=== PATIENT | female | born 1980 | race Caucasian/White ===

== ENCOUNTER 2024-08-21 12:11 | Emergency (ER) | payer SELFPAY ==
--- OUTSIDE RECORDS SUMMARY | 2024-08-21 12:14 | XMS REPORT | Continuity of Care Document ---
Author Name Unknown Address [address] [place] [address] [facility] thconnect Address [address] [place] [address] Care Team Providers Care Fitness Consultant Name Role Phone None, None Primary Care Physician Unavailab Yen Mireles MD Attending Clinician Stacy Haney LCSW Attending Clinician Unavail able SHANA TINAJERO Attending Clinician ARLINE Shah Attending Clinician Unavailab zander NORWOOD Attending Clinician Unavailrob Holliday_mahamed Attending Clinician Unavailrob Bolden Attending Clinician Unavailable DESTIN MARTÍNEZ Attending Clinician Unavail able NO PHYSICIAN, . Attending Clinician Unavailable ERASTO DIAZ Attending Clinician Unavaila KASHIF Bill Attending Clinician Unavaila LAURA Ramirez Attending Clinician UnavailFAITH Aiken Attending Clinician Unavailable MANASA ALVARES Admitting Clinician Un available METCALF_PRISCILLA Admitting Clinician Unavailrob e Obisesan_adekunbi Admitting Clinician Unavailrob e Ki_Suma Admitting Clinician Unavailable DESTIN MARTÍNEZ Admitting Clinician Unavail able ERASTO DIAZ Admitting Clinician Unavaila LAURA Ramirez Admitting Clinician UnavailFAITH Aiken Admitting Clinician Unavailable Payers Payer Name Policy Type Policy Number Effective Date Expirati on Date Source [facility] PLAN STAR [id number] 2016 00:00:00 Problems Condition Name Condition Details Condition Category Status Onset Date Resolution Date Last Treatment Date Treating Clinician Comments Source Myopia Myopia Problem Active 09-19 00:00: 00 [place] [facility] Ophthalmic examinatio n and evaluation Ophthalmic Examinatio n and Evaluation Problem Active 09-19 00:00: 00 [place] [facility] Noncomplia nce with treatment Noncomplia nce with Treatment Problem Active 08-17 00:00: 00 [place] [facility] Polycystic ovary Polycystic Ovary Problem Active 2019-07 00:00: 00 [place] [facility] Vitamin deficiency Vitamin Deficiency Problem Active 2019-07 00:00: 00 [place] [facility] Hypertensi ve disorder Hypertensi ve Disorder Problem Active 2018-07 00:00: 00 [place] [facility] Cardiomega ly Cardiomega ly Problem Active 2018-07 00:00: 00 [place] [facility] Allergies, Adverse Reactions, Alerts Allergy Name Allergy Type Status Severity Reaction(s) Onset Date Inactive Date Treating Clinician Comments Source Metoprol ol Propensi ty to adverse reaction s Active Other 11-27 00:00: 00 vomiting [facility] Morphine Propensi ty to adverse reaction s Active 11-27 00:00: 00 Pt reports lethal rnx but does not specify [facility] Latex Allergy to substanc e Active 10-22 00:00: 00 [place] [facility] Morphine Allergy to substanc e Active 10-22 00:00: [address] [facility] CYCLOBEN ZAPRINE HCL Allergy to substanc e Active 2010-07 0 00:00: [address] [facility] Social History Social Habit Start Date Stop Date Quantity Comments Source Exposure to SARS-CoV-2 (event) 2022-12-08 00:00:00 2022-12-18 13:08:00 Not sure [facility] Sex Assigned At 1980 00:00:00 1980 00:00:00 [facility] Smoking Status Start Date Stop Date Source Former Smoker [facility] Tobacco smoking consumption unknown [facility] Medications Ordered Medication Name Filled Medication Name Start Date Stop Date Current Medication? Ordering Clinician Indication Dosage Frequency Signature (SIG) Comments Components Source losartan (Cozaar) 50 MG tablet 01-09 00:00: 00 01-09 04:59 :00 No [id number] 50mg Q.5D Take 1 tablet (50 mg total) by mouth in the morning and 1 tablet (50 mg total) in the evening. [facility] losartan (Cozaar) 25 MG tablet 24 00:00: 00 Yes 25mg Q.5D Take 25 mg by mouth in the morning and 25 mg in the evening. Stop taking this medication and contact prescriber if you maybe . [facility] amLODIPine (Norvasc) 10 MG tablet 11-19 00:00: 00 Yes 10mg QD Take 10 mg by mouth 1 (one) time each day. [facility] Aspirin Low Dose 81 MG EC tablet 11-19 00:00: 00 Yes 81mg QD Take 81 mg by mouth 1 (one) time each day. [facility] atorvastati n (Lipitor) 80 MG tablet 11-19 00:00: 00 Yes 80mg Take 80 mg by mouth every night. [facility] ergocalcife rol (vitamin D2) 1,250 mcg (50,000 unit) capsule TAKE 1 CAPSULE BY MOUTH EVERY WEEK ergocalcife rol (vitamin D2) 1,250 mcg (50,000 unit) capsule TAKE 1 CAPSULE BY MOUTH EVERY WEEK No ergocalcif davon (vitamin D2) 1,250 mcg (50,000 unit) capsule TAKE 1 CAPSULE BY MOUTH EVERY WEEK [facility] hydrocortis one 2.5 % topical cream with perineal applicator APPLY THIN LAYER EXTERNALLY TO THE AFFECTED AREA TWICE DAILY hydrocortis one 2.5 % topical cream with perineal applicator APPLY THIN LAYER EXTERNALLY TO THE AFFECTED AREA TWICE DAILY No hydrocorti sone 2.5 % topical cream with perineal applicator APPLY THIN LAYER EXTERNALLY TO THE AFFECTED AREA TWICE DAILY [facility] metoprolol tartrate 50 mg tablet TK ONE T PO BID metoprolol tartrate 50 mg tablet TK ONE T PO BID No metoprolol tartrate 50 mg tablet TK ONE T PO BID [facility] olmesartan 40 mg tablet TK 1 T PO QD olmesartan 40 mg tablet TK 1 T PO QD No olmesartan 40 mg tablet TK 1 T PO QD [facility] phenazopyri dine 200 mg tablet TAKE 1 TABLET BY MOUTH TWICE DAILY FOR 5 DAYS phenazopyri dine 200 mg tablet TAKE 1 TABLET BY MOUTH TWICE DAILY FOR 5 DAYS No phenazopyr idine 200 mg tablet TAKE 1 TABLET BY MOUTH TWICE DAILY FOR [address] [facility] spironolact one 50 mg tablet TAKE 1 TABLET BY MOUTH EVERY DAY spironolact one 50 mg tablet TAKE 1 TABLET BY MOUTH EVERY DAY No spironolac tone 50 mg tablet TAKE 1 TABLET BY MOUTH EVERY DAY [facility] sulfamethox azole 800 mg-trimetho prim 160 mg tablet TAKE 1 TABLET BY MOUTH EVERY 12 HOURS FOR 7 DAYS sulfamethox azole 800 mg-trimetho prim 160 mg tablet TAKE 1 TABLET BY MOUTH EVERY 12 HOURS FOR 7 DAYS No sulfametho xazole 800 mg-trimeth oprim 160 mg tablet TAKE 1 TABLET BY MOUTH EVERY 12 HOURS FOR [address] [facility] Vital Signs Vital Name Observation Time Observation Value Comments S ource Height 2020-09-19 00:00:00 66 [in_i] Gavin shaikh [facility] BMI (Body Mass Index) 2020-09-19 00:00:00 38.6 kg/m2 Elvira Moran [facility] Body Weight 2020-09-19 00:00:00 239 [lb_av] Munir agorda [facility] BP Diastolic 2020-08-17 00:00:00 110 mm[Hg] Mat thierryrda [facility] Height 2020-08-17 00:00:00 66 [in_i] Matag orda [facility] BMI (Body Mass Index) 2020-08-17 00:00:00 38.6 kg/m2 [facility] BP Systolic 2020-08-17 00:00:00 170 mm[Hg] Chinchilla tyler [facility] Body Weight 2020-08-17 00:00:00 3824 [oz_av] Low goodwinorda [facility] BP Diastolic 2020-07-24 00:00:00 110 mm[Hg] Mat agorda [facility] Height 2020-07-24 00:00:00 66 [in_i] Matelissa orda [facility] BMI (Body Mass Index) 2020-07-24 00:00:00 38.6 kg/m2 [facility] BP Systolic 2020-07-24 00:00:00 194 mm[Hg] Chinchilla tyler [facility] Body Weight 2020-07-24 00:00:00 239 [lb_av] Munir agorda [facility] BP Diastolic 2020-06-27 00:00:00 114 mm[Hg] Mat agorda [facility] Height 2020-06-27 00:00:00 66 [in_i] Matelissa orda [facility] BMI (Body Mass Index) 2020-06-27 00:00:00 39.5 kg/m2 [facility] BP Systolic 2020-06-27 00:00:00 186 mm[Hg] Chinchilla tyler [facility] Body Weight 2020-06-27 00:00:00 245 [lb_av] Mat agorda [facility] BP Diastolic 2020-05-16 00:00:00 87 mm[Hg] Mat agorda [facility] Height 2020-05-16 00:00:00 66 [in_i] Gavin orda [facility] BMI (Body Mass Index) 2020-05-16 00:00:00 40.2 kg/m2 [facility] BP Systolic 2020-05-16 00:00:00 136 mm[Hg] Chinchilla tyler [facility] Body Weight 2020-05-16 00:00:00 3984 [oz_av] Ma christaorda [facility] BP Diastolic 2019-09-10 00:00:00 115 mm[Hg] Munir agorda [facility] Height 2019-09-10 00:00:00 66 [in_i] Gavin orda [facility] BMI (Body Mass Index) 2019-09-10 00:00:00 37.6 kg/m2 [facility] BP Systolic 2019-09-10 00:00:00 170 mm[Hg] Amor barahonaa [facility] Body Weight 2019-09-10 00:00:00 233 [lb_av] Munir guadarramarda [facility] Procedures Procedure Date / Time Performed Performing Clinicia n Source US, abdomen 2020-08-17 00:00:00 Matthierryrd a [facility] ELECTROCARDIOGRAM, COMPLETE 2019-09-10 00:00:00 [place] [facility] Orthopedic Surgery [facility] Encounters Start Date/Time End Date/Time Encounter Type Admission Type Attending Clinicians Care Facility Care Department Encounter ID Source 2023-02-05 09:20:[address] [facility] [id number] [facility] 2023-01-14 09:56:[address] [facility] [id number] [facility] 2022-12-13 11:50:[address] [facility] [id number] [facility] 2022-12-06 09:22:[address] [facility] [id number] [facility] 2022-11-27 15:07:[address] [facility] [id number] [facility] 2022-11-24 14:14:[address] [facility] [id number] [facility] 2022-11-19 12:47:[address] [facility] [id number] [facility] 2022-11-18 09:48:[address] [facility] [id number] [facility] 2023-11-17 15:30:00 2023-11-17 15:30:[address] [facility] [id number] [facility] 2023-05-07 14:30:00 2023-05-07 14:30:[address] [facility] [id number] [facility] 2023-02-26 14:30:00 2023-02-26 17:55:48 Telemedici ne Yen Mendieta [facility] [id number] [id number] [facility] 2023-02-12 13:00:00 2023-02-12 13:00:[address] [facility] [id number] [facility] 2022-12-20 11:30:00 2022-12-20 11:30:[address] [facility] [id number] [facility] 2022-12-18 13:00:00 2022-12-18 13:00:00 Telemedici ne YEN MENDIETA [facility] [id number] [id number] [facility] 2022-12-18 00:00:00 2022-12-18 00:00:00 Patient Outreach Stacy Haney Latonya [facility] [id number] [id number] [facility] 2022-11-27 13:00:00 2022-11-27 13:00:00 Telemedici ne YEN MENDIETA [facility] [id number] [id number] [facility] 2022-11-21 00:00:00 2022-11-21 00:00:00 Patient Outreach Stacy Haney Latonya [facility] [id number] [id number] [facility] 2022-11-16 01:42:00 2022-11-19 14:34:00 Inpatient U SHANA TINAJERO [facility] [id number] [facility] 2022-11-15 17:44:00 2022-11-15 23:54:00 Emergency ER ARLINE HERNANDEZ [facility] [id number] [facility] 2022-11-15 17:44:00 2022-11-15 23:54:00 emergency [id number] 2022-10-30 00:00:00 2022-10-30 00:00:00 Outpatient JULIUS_FERMIN LOMELIA [facility] [id number] [facility] 2020-09-19 12:53:00 2020-09-19 12:53:00 Outpatient Obisesan_ad ekunbi [facility] [id number] [facility] 2020-09-19 00:00:00 2020-09-19 00:00:00 Elodia Agudelo MD: [address] [place] [address] , Ph. [facility] [id number] [facility] 2020-08-17 05:52:00 2020-08-17 05:52:00 Outpatient Obisesan_ad ekunbi [facility] [id number] [facility] 2020-08-17 00:00:00 2020-08-17 00:00:00 Mahamed Holliday, POWER SWEEPER OPERATOR: [place] [address] , Ph. [facility] [id number] [facility] 2020-07-24 01:03:00 2020-07-24 01:03:00 Outpatient Obisesan_ad ekunbi [facility] [id number] [facility] 2020-07-24 00:00:00 2020-07-24 00:00:00 Sam Caicedo MD: [address] [place] [address] , Ph. [facility] [id number] [facility] 2020-06-27 02:21:00 2020-06-27 02:21:00 Outpatient Obisesan_ad ekunbi [facility] [id number] [facility] 2020-06-27 00:00:00 2020-06-27 00:00:00 Jamila Huizar, POWER SWEEPER OPERATOR: [address] [place] [address] , Ph. [facility] [place] [facility] [id number] [facility] 2020-05-16 04:35:00 2020-05-16 04:35:00 Outpatient Obisesan_ad ekunbi [facility] [id number] [facility] 2020-05-16 00:00:00 2020-05-16 00:00:00 Mahamed Holliday, POWER SWEEPER OPERATOR: [place] [address] , Ph. [facility] [id number] [facility] 2020-05-15 12:06:00 2020-05-15 12:06:00 Outpatient Obisesan_ad ekunbi [facility] [id number] [facility] 2020-05-04 04:08:00 2020-05-04 04:08:00 Outpatient Obisesan_ad ekunbi [facility] [id number] [facility] 2019-11-01 04:09:00 2019-11-01 04:09:00 Outpatient Young_J MMG [facility] [id number] [facility] 2019-09-10 05:02:00 2019-09-10 05:02:00 Outpatient Obisesan_ad ekunbi [facility] [id number] [facility] 2019-09-10 00:00:00 2019-09-10 00:00:00 Mahamed Holliday, POWER SWEEPER OPERATOR: [address] [place] [address] , Ph. [facility] [id number] [facility] 2019-05-17 16:45:00 2019-05-19 16:55:00 Inpatient ER DESTIN MARTÍNEZ [facility] [id number] [facility] 2013-05-28 08:17:00 2013-05-28 08:17:00 Outpatient EL CONRAD PHYSICIAN, . [facility] [id number] [facility] 2012-10-21 16:25:00 2012-10-22 10:16:00 Inpatient ER ERASTO DIAZ [facility] [id number] [facility] 2012-06-12 17:17:00 2012-06-12 21:19:00 Emergency ER KASHIF BLUE [facility] [id number] [facility] 2011-04-26 15:00:00 2011-05-01 12:40:[address] [facility] [id number] [facility] 2011-04-24 01:52:00 2011-04-24 04:00:00 Emergency ER LAURA ZAVALA [facility] [id number] [facility] 2011-04-19 11:51:00 2011-04-20 13:50:00 Inpatient EL LAURA ZAVALA [facility] [id number] [facility] 2008-04-17 04:50:00 2008-04-22 19:21:00 Inpatient ER FAITH HENSON [facility] [id number] [facility] Results Test Description Test Time Test Comments Results Result Co mments Source [facility] Auto Differential panel - Blood 2020-06-28 00:00:00* Test Item Value Reference Range Interpretation Comme nts Leukocytes [#/volume] in Blo od by Automated count (test code = 6690-2) 7.8 x10e3/uL 3.4-10.8 Erythrocytes [#/volume] in Blood by Automated count (test code = 789-8) 4.77 x10e6/uL 3.77-5.28 Hemoglobin [Mass/volume] in Blood (test code = 718-7) 14.2 g/dL 11.1-15.9 Hematocrit [Volume Fraction] of Blood by Automated count (test code = 4544-3) 43.8 % 34.0-46.6 MCV [Entitic volume] by Automated count (test code = 787-2) 92 fL 79-97 MCH [Entitic mass] by Automa estefany count (test code = 785-6) 29.8 pg 26.6-33.0 MCHC [Mass/volume] by Automa estefany count (test code = 786-4) 32.4 g/dL 31.5-35.7 Erythrocyte distribution wid th [Ratio] by Automated count (test code = 788-0) 13.0 % 11.7-15.4 Platelets [#/volume] in Bloo d by Automated count (test code = 777-3) 238 x10e3/uL 150-450 Neutrophils/100 leukocytes i n Blood by Automated count (test code = 770-8) 69 % not estab. Lymphocytes/100 leukocytes i n Blood by Automated count (test code = 736-9) 20 % not estab. Monocytes/100 leukocytes in Blood by Automated count (test code = 5905-5) 8 % not estab. Eosinophils/100 leukocytes i n Blood by Automated count (test code = 713-8) 2 % not estab. Basophils/100 leukocytes in Blood by Automated count (test code = 706-2) 1 % not estab. immature cells (test code = immature cells) duct maker Neutrophils [#/volume] in Bl ood by Automated count (test code = 751-8) 5.4 x10e3/uL 1.4-7.0 Lymphocytes [#/volume] in Bl ood by Automated count (test code = 731-0) 1.6 x10e3/uL 0.7-3.1 Monocytes [#/volume] in Bloo d by Automated count (test code = 742-7) 0.6 x10e3/uL 0.1-0.9 Eosinophils [#/volume] in Bl ood by Automated count (test code = 711-2) 0.2 x10e3/uL 0.0-0.4 Basophils [#/volume] in Bloo d by Automated count (test code = 704-7) 0.0 x10e3/uL 0.0-0.2 Immature granulocytes/100 leukocytes in Blood by Automated count (test code = 56960-9) 0 % not estab. Immature granulocytes [#/volume] in Blood by Automated count (test code = 78950-7) 0.0 x10e3/uL 0.0-0.1 Nucleated erythrocytes/100 leukocytes [Ratio] in Blood by Automated count (test code = 78936-9) duct maker Morphology [Interpretation] in Blood Narrative (test code = 46029-6) duct maker [facility] ProgramComprehensive metabolic 2000 panel - Serum or [id number] 00:00:00* Test Item Value Reference Range Interpretation Comme nts Glucose [Mass/volume] in Ser um or Plasma (test code = 2345-7) 88 mg/dL 65-99 Urea nitrogen [Mass/volume] in Serum or Plasma (test code = 3094-0) 20 mg/dL 6-20 Creatinine [Mass/volume] in Serum or Plasma (test code = 2160-0) 0.89 mg/dL 0.57-1.00 Glomerular filtration rate/1.73 sq M.predicted among non-blacks [Volume Rate/Area] in Serum, Plasma or Blood by Creatinine-based formula (CKD-EPI) (test code = 53508-9) 83 mL/min/1.73 >59 Glomerular filtration rate/1.73 sq M.predicted among blacks [Volume Rate/Area] in Serum, Plasma or Blood by Creatinine-based formula (CKD-EPI) (test code = 65784-8) 96 mL/min/1.73 >59 Urea nitrogen/Creatinine [Ma ss Ratio] in Serum or Plasma (test code = 3097-3) 22 9-23 Sodium [Moles/volume] in Ser um or Plasma (test code = 2951-2) 143 mmol/L 134-144 Potassium [Moles/volume] in Serum or Plasma (test code = 2823-3) 4.5 mmol/L 3.5-5.2 Chloride [Moles/volume] in Serum or Plasma (test code = 5-0) 105 mmol/L 96-106 Carbon dioxide, total [Moles/volume] in Serum or Plasma (test code = 2027-9) 24 mmol/L 20-29 Calcium [Mass/volume] in Ser um or Plasma (test code = 79408-3) 9.4 mg/dL 8.7-10.2 Protein [Mass/volume] in Ser um or Plasma (test code = 2885-2) 7.0 g/dL 6.0-8.5 Albumin [Mass/volume] in Ser um or Plasma (test code = 1751-7) 4.5 g/dL 3.8-4.8 Globulin [Mass/volume] in Serum by calculation (test code = 78893-9) 2.5 g/dL 1.5-4.5 Albumin/Globulin [Mass Ratio ] in Serum or Plasma (test code = 1759-0) 1.8 1.2-2.2 Bilirubin.total [Mass/volume ] in Serum or Plasma (test code = 1975-2) 0.3 mg/dL 0.0-1.2 Alkaline phosphatase [Enzymatic activity/volume] in Serum or Plasma (test code = 6768-6) 59 IU/L 39-117 Aspartate aminotransferase [Enzymatic activity/volume] in Serum or Plasma (test code = 1920-8) 18 IU/L 0-40 Alanine aminotransferase [Enzymatic activity/volume] in Serum or Plasma (test code = 1742-6) 18 IU/L 0-32 [facility] - Serum or Plasma 2020-06-28 00:00:00* Test Item Value Reference Range Interpretation Comme nts Cholesterol [Mass/volume] in Serum or Plasma (test code = 2093-3) 146 mg/dL 100-199 Triglyceride [Mass/volume] i n Serum or Plasma (test code = 2571-8) 75 mg/dL 0-149 Cholesterol in HDL [Mass/vol ume] in Serum or Plasma (test code = 2085-9) 43 mg/dL >39 Cholesterol in VLDL [Mass/vo lume] in Serum or Plasma by calculation (test code = 37425-8) 15 mg/dL 5-40 Cholesterol in LDL [Mass/vol ume] in Serum or Plasma by calculation (test code = 59062-0) 88 mg/dL 0-99 Laboratory comment [Text] in Report Narrative (test code = 57605-8) duct maker [facility] [Presence] in Serum by RPR 2020-06-28 00:00:00* Test Item Value Reference Range Interpretation Comme nts Reagin Ab [Presence] in Seru m by RPR (test code = 79068-5) non reactive non reactive [facility] Ab+HIV1 p24 Ag [Presence] in Serum or Plasma by [id number] 00:00:00* Test Item Value Reference Range Interpretation Comme nts HIV 1+2 Ab+HIV1 p24 Ag [Presence] in Serum or Plasma by Immunoassay (test code = 72236-8) non reactive non reactive [facility]atitis [facility] virus surface Ag [Presence] in Serum or Plasma by [id number] 00:00:00* Test Item Value Reference Range Interpretation Comme nts Hepatitis B virus surface Ag [Presence] in Serum or Plasma by Immunoassay (test code = 5196-1) negative negative [facility] panel, [id number] 00:00:00* Test Item Value Reference Range Interpretation Comme nts interpretation (test code = interpretation) note pdf (test code = pdf) . [facility] ProgramCyt[facility] report of Cervical or vaginal smear or scraping Cyto stain.thin [id number] 00:00:00* Test Item Value Reference Range Interpretation Comme nts age gdln acog testing (test code = age gdln acog testing) 30-65 Cytology report of Cervical or vaginal smear or scraping Cyto stain (test code = 14110-5) comment Statement of adequacy [Interpretation] of Cervical or vaginal smear or scraping by Cyto stain (test code = 61552-8) comment Diagnosis ICD code [Identifi er] (test code = 68946-6) comment Business Services Representative who read Cyto sta in of Cervical or vaginal smear or scraping (test code = 27078-1) comment Microscopic observation [Wilfred ntifier] in Unspecified specimen by Other stain (test code = 22436-6) . note: (test code = note:) comment Cytology report of Cervical or vaginal smear or scraping Cyto stain.thin prep (test code = 14346-5) comment Human papilloma virus 16+18+31+33+35+39+45+51+52+56+58+59+ 66+68 DNA [Presence] in Cervix by Probe with signal amplification (test code = 84913-4) negative negative Chlamydia trachomatis rRNA [Presence] in Cervix by RAH with probe detection (test code = 38952-1) negative negative Neisseria gonorrhoeae rRNA [Presence] in Cervix by RAH with probe detection (test code = 82833-7) negative negative Trichomonas vaginalis rRNA [Presence] in Unspecified specimen by RAH with probe detection (test code = 94585-7) negative [id number] 15:07:00* Test Item Value Reference Range Interpretation Comme nts Rate & Rhythm (test code = R ate & Rhythm) 55 OH Interval (test code = OH Interval) 218 QRS Duration (test code = QRS Duration) 106 QT Interval (test code = QT Interval) 461 [facility]
[2024-08-21] MEDS ORDERED: Magnesium Sulfate 2gm IVPB 2 G/50 ML BAG IV ONE (13:07)
[2024-08-21 13:10] LABS: Absolute Basophils 0.1 K/uL (0-0.5); Absolute Eosinophils 0.2 K/uL (0-0.5); Absolute Lymphocytes (CBC) 1.7 K/uL (0.7-4.9); Absolute Monocytes 0.8 K/uL (0.1-1.3); Eosinophils % 2.2 % (0-4.4); Hematocrit 37.9 % (36.0-45.0); Hemoglobin 12.7 g/dL (12.0-15.0); Lymphocytes % 21.6 % (15.3-44.8); MCH 27.5 pg (27.0-35.0); MCHC 33.4 g/dL (32.0-36.0); MCV 82.5 fL (80-100); MPV 9.1 fL (7.6-11.3); Neutrophils % 65.2 % (41.7-73.7); Platelets 260 thou/uL (152-406); Red Cell Distribution Width 15.6 % (12.1-15.2)
[2024-08-21 13:18] LABS: PT Prothrombin Time 11.5 SECONDS (9.4-12.5); Protime INR 1.1
--- NOTE | 2024-08-21 13:20 | RAD REPORT ---
EXAMINATION: ONE VIEW CHEST XR CLINICAL INDICATION: CHEST PAIN TECHNIQUE: Frontal chest projection is submitted. Examination is limited by patient positioning and t echnique. COMPARISON: No prior exam. FINDINGS: Interstitial markings are prominent which can be seen in mild interstitial edema or bronchitis. No fo josé consolidation indicating pneumonia. The heart appears mildly prominent in size. No displaced fractures identified.
[2024-08-21 13:31] LABS: ALT/SGPT 35 U/L (13-56); AST/SGOT 25 U/L (15-37); Albumin 3.2 g/dL (3.4-5.0); Albumin/Globulin Ratio 0.8 (1.1-1.8); Alkaline Phosphatase 66 U/L (45-117); Anion Gap 8.3 mEq/L (5.0-15.0); BUN Blood Urea Nitrogen 16 mg/dL (7-18); Bicarbonate 23 mEq/L (21-32); Bilirubin Total 0.5 mg/dL (0.2-1.0); Globulin 3.9 g/dL (2.3-3.5); Glomerular Filtration Rate 88 ml/min (=/>90); Glucose Level 102 mg/dL (74-106); Potassium 4.3 mEq/L (3.5-5.1); Protein, Total 7.1 g/dL (6.4-8.2); Sodium Level 137 mEq/L (136-145); Troponin High Sensitivity 37.9 pg/mL (<58.9)
[2024-08-21 13:32] LABS: Bilirubin Direct < 0.2 mg/dL (0-0.2); Bilirubin Indirect, Calculated 0.3 mg/dL (0.2-0.8)
[2024-08-21 13:39] LABS: SARS-CoV-2 Antigen CONTROL BLUE LINE VIS/BG OK; SARS-CoV-2 Antigen Rapid Res Negative (Negative)
[2024-08-21] MEDS ORDERED: METOCLOPRAMIDE 10 MG/2mL INJ ONE (13:39)
[2024-08-21] MEDS ORDERED: DIPHENHYDRAMINE 50 MG/ML VIAL ONE (13:39)
[2024-08-21] MEDS ORDERED: NA CHLORIDE 0.9% 1,000 ML ONE (13:39)
[2024-08-21 14:06] LABS: Specific Gravity > 1.030 (1.005-1.030); Urine Bacteria None Seen /HPF (<20); Urine Bilirubin NEGATIVE (Negative); Urine Blood 3+ (OVER) (Negative); Urine Clarity Extremely Turbid (Clear); Urine Color Dark-Brown (Yellow); Urine Crystals Unidentified Moderate /HPF (None Seen); Urine Culture Reflex Order REFLEXED; Urine Glucose NEGATIVE (Negative); Urine Ketones TRACE (Negative); Urine Micro Reflex YN NO BILL MICROSCOPIC; Urine Mucus 4+ /HPF (None Seen); Urine Nitrite NEGATIVE (Negative); Urine Protein 3+ (Negative); Urine RBC >50 /HPF (None Seen); Urine Urobilinogen Normal (Normal); Urine WBC >50 /HPF (<5); Urine WBC Clump Many /HPF (None Seen); Urine Yeast (Budding) Occasional /HPF (None Seen)
[2024-08-21 14:07] LABS: Specific Gravity > 1.030 (1.005-1.030)
--- NOTE | 2024-08-21 14:54 | RAD REPORT ---
EXAM: CTA of the chest, abdomen and pelvis HISTORY: Chest pain and back pain COMPARISON: None TECHNIQUE: Multiple contiguous axial images were obtained a CTA of the chest and abdomen with contras t per aortic dissection protocol. This involves 3D reconstructions, MIPs, volume rendered images and/or shaded surface rendering. One or more of the following dose reduction techniques were used: Au tomated exposure control, adjustment of the mA and/or kV according to patient size, and/or iterative reconstruction. Unless otherwise specified, incidental findings do not require dedicated im aging follow-up. Sagittal and coronal 3-D MIP reformats were performed. FINDINGS: PULMONARY ARTERIES: Normal in caliber without filling defects to suggest pulmonary emboli. ASCENDING THORACIC AORTA: Normal caliber without evidence of dissection or aneurysmal dilatation. DESCENDING THORACIC AORTA: Normal caliber without evidence of dissection or aneurysmal dilatation. ABDOMINAL AORTA: Normal caliber without evidence of dissection or aneurysmal dilatation. CELIAC TRUNK: Patent. SMA: Patent SHANNA: Patent RENAL ARTERIES: Bilateral single renal arteries without significant atherosclerotic disease. MEDIASTINUM: Mildly prominent mediastinal lymph nodes are present. LUNGS: No focal infiltrates or masses. PLEURAL SPACE: No pleural effusion or pneumothorax. LIVER: Mild fatty liver.. Cholelithiasis. SPLEEN: Unremarkable. PANCREAS: Unremarkable. KIDNEYS: Unremarkable. ADRENALS: Unremarkable. BOWEL: Moderate stool is retained throughout the colon.. Normal appendix. RETROPERITONEUM: No lymphadenopathy. BONES: Bilateral spondylolysis at L5-S1. ADDITIONAL FINDINGS: IUD is present in the uterus. IMPRESSION: No evidence of thoracic or abdominal aortic aneurysm or dissection. Cholelithiasis. Mild fatty liver.
[2024-08-21] MEDS ORDERED: FENTANYL CITR 100 MCG/2 ML ONE (15:33)
[2024-08-21] MEDS ORDERED: droPERidol 5 MG/2 ML VIAL ONE (15:34)
--- NOTE | 2024-08-21 16:05 | RAD REPORT ---
EXAM: Right upper quadrant ultrasound. CLINICAL HISTORY: GB Eval COMPARISON: None. FINDINGS: Gallbladder: Cholelithiasis. Bile ducts: No intrahepatic or extrahepatic biliary dilatation. Common bile duct measures 2 mm. Limited imaging of the liver shows no concerning finding. IMPRESSION: Cholelithiasis.
--- NOTE | 2024-08-21 16:34 | ER ---
Nurse's Notes [facility] Name: Mary Blanco Age: 43 yrs Sex: Female : 1980 Arrival Date: 08/21/2024 Time: 12:11 Bed 8 Private MD: Diagnosis: Other cholelithiasis without obstruction;UTI/ Urinary tract infection, site not specified Presentation: 08/21 12:15 Chief complaint: Patient states: 2 DAYS AGO JUMPED UP STARTED WITH TINGLING IN LEFT db FOOT RADIATING UP LEG AND HAS ALL OVER BODY DESCRIBED "SLEEPY TINGLY SENSATION LIKE WHEN YOUR FOOT FALLS ASLEEP. MUSCLE SPASMS STARTED TODAY. 12:21 Coronavirus screen: Client denies travel out of the [place] in the last 14 days. At this db time, the client does not indicate any symptoms associated with coronavirus-19. Ebola Screen: Patient negative for fever greater than or equal to 101.5 degrees Fahrenheit, and additional compatible Ebola Virus Disease symptoms Patient denies exposure to infectious person. Patient denies travel to an Ebola-affected area in the 21 days before illness onset. No symptoms or risks identified at this time. Initial Sepsis Screen: Does the patient meet any 2 criteria? No. Patient's initial sepsis screen is negative. Does the patient have a suspected source of infection? No. Patient's initial sepsis screen is negative. Risk Assessment: Do you want to hurt yourself or someone else? Patient reports no desire to harm self or others. Onset of symptoms was August 21, 2024. 12:21 Method Of Arrival: Ambulatory db 12:21 Acuity: LAKESHA 3 db Triage Assessment: 12:21 General: Appears in no apparent distress. comfortable, Behavior is calm, cooperative. db Pain: Denies pain. Neuro: Level of Consciousness is awake, alert, obeys commands, Oriented to person, place. Respiratory: Airway is patent Respiratory effort is even, unlabored, Respiratory pattern is regular, symmetrical. GI: Reports nausea. 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 - Infectious Disease History:: Denies. - Social history:: Smoking status: Patient denies any tobacco usage or history of. Screenin:28 [facility] ED Fall Risk Assessment (Adult) History of falling in the last 3 months, ko1 including since admission No falls in past 3 months (0 pts) Confusion or Disorientation No (0 pts) Intoxicated or Sedated No (0 pts) Impaired Gait No (0 pts) Mobility Assist Device Used No (0 pt) Altered Elimination No (0 pt) Score/Fall Risk Level 0 - 2 = Low Risk Oriented to surroundings, Maintained a safe environment, Educated pt \\T\\ family on fall prevention, incl call for assistance when getting out of bed, Assessed \\T\\ reinforced patient's understanding of fall precautions, Hourly rounding (assess needs \\T\\ fall precautionary measures) done. Abuse screen: Denies threats or abuse. Denies injuries from another. Nutritional screening: No deficits noted. Tuberculosis screening: No symptoms or risk factors identified. Assessment: 13:28 General: Appears in no apparent distress. Behavior is calm, cooperative, appropriate ko1 for age. Pain: Denies pain. Neuro: No deficits noted. Cardiovascular: No deficits noted. Respiratory: No deficits noted. GI: Reports nausea, vomiting. : No deficits noted. No signs and/or symptoms were reported regarding the genitourinary system. EENT: No deficits noted. No signs and/or symptoms were reported regarding the EENT system. Derm: No deficits noted. No signs and/or symptoms reported regarding the dermatologic system. Musculoskeletal: No deficits noted. No signs and/or symptoms reported regarding the musculoskeletal system. Vital Signs: 12:21 BP 218 / 111; Pulse 62; Resp 18; Temp 98.1; Pulse Ox 97% ; Weight 117.93 kg; Height 5 db ft. 6 in. ; 13:28 BP 205 / 99; Pulse 56; Resp 16; Pulse Ox 98% on R/A; ko1 14:07 BP 171 / 92; ec2 14:11 BP 148 / 79; Pulse 53; Resp 16; Pulse Ox 97% on R/A; ko1 15:40 BP 159 / 98; Pulse 62; Resp 16; Pulse Ox 95% on R/A; ko1 12:21 Body Mass Index 41.96 (117.93 kg, 167.64 cm) db ED Course: 12:14 Patient arrived in ED. im 12:14 Servando Atkins MD is Attending Physician. ec2 12:21 Arm band placed on Patient placed in an exam room. db 12:23 Triage completed. db 12:54 Akash Mccoy, PIPPA is Primary Nurse. bp 13:00 Initial lab(s) drawn, by me, sent to lab. Inserted saline lock: 22 gauge in right aa5 forearm, using aseptic technique. Blood collected. Flushed with 10 mL NS. 13:04 Basic Metabolic Panel Sent. ko1 13:04 CBC with Diff Sent. ko1 13:04 PT-INR Sent. ko1 13:04 Troponin HS Sent. ko1 13:05 COVID swab sent to lab. Flu and/or RSV swab sent to lab. aa5 13:10 IV discontinued, intact, bleeding controlled, Pressure dressing applied, infiltrated in ko1 CT (22 R FA). 13:13 XRAY Chest (1 view) In Process Unspecified. EDMS 13:15 Inserted saline lock: 22 gauge in left antecubital area, using aseptic technique. ko1 Flushed with 10 mL NS. 13:28 Patient has correct armband on for positive identification. Allergy band placed. Bed in ko1 low position. Call light in reach. Side rails up X2. Provided Education on: labs, meds. Client placed on continuous cardiac and pulse oximetry monitoring. NIBP monitoring applied. quality assurance monitor body on. Door closed. Noise minimized. Lights dimmed. Warm blanket given. Pillow given. 13:28 EKG done, by ED staff, reviewed by Servando Atkins MD. ko1 13:30 Alyssa Romero, PIPPA is Primary Nurse. ko1 13:35 BNP Sent. ec2 13:37 Add On-Lab Sent. ko1 13:43 Radiology exam delayed due to test not completed at this time. mw3 13:54 Patient requests rest room assistance. ko1 13:54 Assisted to bathroom. ko1 13:54 Urine collected: clean catch specimen, blood tinged. ko1 13:59 Test, Urine Sent. ko1 14:40 Angio Aorta For Dissection In Process Unspecified. EDMS 15:13 No provider procedures requiring assistance completed. ko1 15:59 US Abdomen Limited In Process Unspecified. EDMS 16:34 Shravan Connor MD is Referral Physician. ec2 16:36 IV discontinued, intact, bleeding controlled, No redness/swelling at site. Pressure ko1 dressing applied. Administered Medications: 13:26 Drug: Magnesium Sulfate IVPB 2 grams IVPB once over 30 mins Route: IVPB; Infused Over: ko1 30 mins; Site: right forearm; 13:53 Follow up: Response: No adverse reaction; IV Status: Completed infusion; IV Intake: ko1 100ml 13:43 Drug: metoCLOPramide IVP 10 mg IVP once; over 1 to 2 minutes Route: IVP; Site: right ko1 forearm; 13:58 Follow up: Response: No adverse reaction ko1 13:43 Drug: diphenhydrAMINE IVP 50 mg IVP once Route: IVP; Site: right forearm; ko1 13:58 Follow up: Response: No adverse reaction ko1 13:43 Drug: NS 0.9% IV 1000 ml IV at 1000 ml once; to be given as a bolus over 60 minutes ko1 Route: IV; Rate: 1000 ml; Site: right forearm; 16:36 Follow up: Response: No adverse reaction; IV Status: Completed infusion; IV Intake: ko1 1000ml 15:39 Drug: Droperidol IVP 1.25 mg IVP once Route: IVP; Site: left antecubital; ko1 15:55 Follow up: Response: No adverse reaction ko1 15:40 Drug: fentaNYL (PF) IVP 50 mcg IVP once Route: IVP; Site: left antecubital; ko1 15:55 Follow up: Response: No adverse reaction ko1 Medication: 13:28 VIS not applicable for this client. ko1 Intake: 13:53 IV: 100ml; Total: 100ml. ko1 16:36 IV: 1000ml; Total: 1100ml. ko1 Outcome: 16:34 Discharge ordered by MD. ec2 16:36 Discharged to home via wheelchair, with family, ko1 16:36 Condition: improved 16:36 Discharge instructions given to patient, family, Instructed on discharge instructions, follow up and referral plans. medication usage, Demonstrated understanding of instructions, follow-up care, medications, Prescriptions given X 3, 16:49 Patient left the ED. ko1 Signatures: Dispatcher [employer] EDMS Kimberly Drew RN RN aa5 Akash Mccoy RN RN bp Willis, Michelle mw3 Alyssa Romero RN RN ko1 Treasure Boucher RN RN db Mendoza, Itzel im Corral, Edwin, MD MD ec2 Corrections: (The following items were deleted from the chart) 16:49 16:36 Discharge instructions given to patient, family, Instructed on discharge ko1 instructions, follow up and referral plans. medication usage, Demonstrated understanding of instructions, follow-up care, medications, Prescriptions given X 2, ko1
--- NOTE | 2024-08-21 16:34 | EDPHYS ---
Physician Documentation [facility] Name: Mary Blanco Age: 43 yrs Sex: Female : 1980 Arrival Date: 08/21/2024 Time: 12:11 Bed 8 Private MD: ED Physician Servando Atkins HPI: 08/21 12:37 This 43 yrs old Female presents to ER via Ambulatory with complaints of ec2 Numbness, Vomiting. 12:38 Patient arrives today for chest tightness as well as whole body numbness as well as a ec2 bout of nausea and vomiting. Patient reports that initially she had some back pain, had some left-sided numbness on the foot which progressed to whole body numbness. Patient reports no falls injuries or trauma, denies any red flag symptoms. Reports that we will prompted evaluation today is that she had some chest tightness and was concerned about that. Reports history of hypertension, states that she did not take her medication today. Reports of difficulty breathing. Reports history of previous stroke.. 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 - Infectious Disease History:: Denies. - Social history:: Smoking status: Patient denies any tobacco usage or history of. ROS: 12:38 Constitutional: as per hpi ec2 Exam: 12:38 CT study not indicated or reported. Reason for not performing CT: unnecessary ec2 12:38 Constitutional: GEN: NAD Head: atraumatic Eyes: EOMI Ears: External ears are normal. CV: regular rate LUNGS: no respiratory distress ABD: non-distended SKIN: no evidence of rashes MSK: no evidence of trauma. Neuro: Cranial nerves II through XII intact, strength intact all 4 extremities, no focal neurologic deficit appreciated. Vital Signs: 12:21 BP 218 / 111; Pulse 62; Resp 18; Temp 98.1; Pulse Ox 97% ; Weight 117.93 kg; Height 5 db ft. 6 in. ; 13:28 BP 205 / 99; Pulse 56; Resp 16; Pulse Ox 98% on R/A; ko1 14:07 BP 171 / 92; ec2 14:11 BP 148 / 79; Pulse 53; Resp 16; Pulse Ox 97% on R/A; ko1 15:40 BP 159 / 98; Pulse 62; Resp 16; Pulse Ox 95% on R/A; ko1 12:21 Body Mass Index 41.96 (117.93 kg, 167.64 cm) db MDM: 12:17 Medical Screening Exam initiated ec2 12:38 TNKase (Tenecteplase) Screening: Not Applicable. Data reviewed: vital signs, nurses ec2 notes. ED course: Patient arrives today for whole body numbness along with a bout of nausea and vomiting and chest tightness. Examination is revealing for neuro intact individual was otherwise hypertensive in no acute distress. Will obtain lab work, EKG, chest x-ray. I considered processes such as acute stroke however given the distribution of the whole body numbness, I have a low suspicion for this. Considered other processes such as ACS, electrolyte disturbances, anemia, dehydration.. 13:31 ED course: EKG independently reviewed and interpreted by me, shows normal sinus rhythm, ec2 rate of 50, no acute ST segment elevations, intervals are nonactionable.. 16:33 ED course: Ultrasound shows cholelithiasis. On reassessment patient with marked ec2 improvement in symptoms. Will discharge to home, will prescribe her medications for her symptomatic cholelithiasis and instructed to follow-up with general surgery for elective removal. Instructed her on strict return precautions.. 08/21 12:29 Order name: Basic Metabolic Panel; Complete Time: 13:33 ec2 08/21 12:29 Order name: CBC with Diff; Complete Time: 13:32 ec2 08/21 12:29 Order name: PT-INR; Complete Time: 13:32 ec2 08/21 12:29 Order name: Troponin HS; Complete Time: 13:33 ec2 08/21 12:29 Order name: LFT's; Complete Time: 13:33 ec2 08/21 12:29 Order name: UAM; Complete Time: 14:12 ec2 08/21 12:37 Order name: Influenza Screen (a \T\ B); Complete Time: 13:52 ec2 08/21 12:37 Order name: SARS RAPID; Complete Time: 13:52 ec2 08/21 13:33 Order name: BNP; Complete Time: 14:12 ec2 08/21 13:33 Order name: Add On-Lab ec2 08/21 13:53 Order name: Test, Urine; Complete Time: 14:12 ko1 08/21 14:10 Order name: Urine Culture EDMS 08/21 12:29 Order name: XRAY Chest (1 view); Complete Time: 13:32 ec2 08/21 14:15 Order name: Angio Aorta For Dissection; Complete Time: 14:55 EDMS 08/21 15:34 Order name: US Abdomen Limited; Complete Time: 16:08 ec2 08/21 12:29 Order name: Cardiac monitoring; Complete Time: 13:04 ec2 08/21 12:29 Order name: EKG - Nurse/Tech; Complete Time: 13:26 ec2 08/21 12:29 Order name: IV Saline Lock; Complete Time: 13:04 ec2 08/21 12:29 Order name: Labs collected and sent; Complete Time: 13:04 ec2 08/21 12:29 Order name: O2 Per Protocol; Complete Time: 13:04 ec2 08/21 12:29 Order name: O2 Sat Monitoring; Complete Time: 13:04 ec2 08/21 13:45 Order name: Misc. Order: UA Preg needed for CT; Complete Time: 13:53 sp Administered Medications: 13:26 Drug: Magnesium Sulfate IVPB 2 grams IVPB once over 30 mins Route: IVPB; Infused Over: ko1 30 mins; Site: right forearm; 13:53 Follow up: Response: No adverse reaction; IV Status: Completed infusion; IV Intake: ko1 100ml 13:43 Drug: metoCLOPramide IVP 10 mg IVP once; over 1 to 2 minutes Route: IVP; Site: right ko1 forearm; 13:58 Follow up: Response: No adverse reaction ko1 13:43 Drug: diphenhydrAMINE IVP 50 mg IVP once Route: IVP; Site: right forearm; ko1 13:58 Follow up: Response: No adverse reaction ko1 13:43 Drug: NS 0.9% IV 1000 ml IV at 1000 ml once; to be given as a bolus over 60 minutes ko1 Route: IV; Rate: 1000 ml; Site: right forearm; 16:36 Follow up: Response: No adverse reaction; IV Status: Completed infusion; IV Intake: ko1 1000ml 15:39 Drug: Droperidol IVP 1.25 mg IVP once Route: IVP; Site: left antecubital; ko1 15:55 Follow up: Response: No adverse reaction ko1 15:40 Drug: fentaNYL (PF) IVP 50 mcg IVP once Route: IVP; Site: left antecubital; ko1 15:55 Follow up: Response: No adverse reaction ko1 Disposition Summary: 08/21/24 16:34 Discharge Ordered Notes: Location: Home ec2 Condition: Stable ec2 Diagnosis - Other cholelithiasis without obstruction ec2 - UTI/ Urinary tract infection, site not specified ec2 Followup: ec2 - With: Shravan Connor MD - When: As needed - Reason: Recheck today's complaints Discharge Instructions: - Discharge Summary Sheet ec2 - Cholelithiasis ec2 Forms: - Medication Reconciliation Form ec2 - Antibiotic Education ec2 - Prescription Opioid Use ec2 - Patient Portal Instructions ec2 - Leadership Thank You Letter ec2 Prescriptions: - acetaminophen-codeine 300-30 mg Oral tablet - take 1 tablet ORAL route every 6 hours; 15 tablet; Refills: 0, Product ec2 Selection Permitted - Zofran 4 mg Oral Tablet - take 1 tablet ORAL route every 12 hours As needed; 20 tablet; Refills: 0, ec2 Product Selection Permitted - Bactrim DS 800-160 mg Oral Tablet - take 1 tablet ORAL route every 12 hours for 7 days; 14 tablet; Refills: 0, ec2 Product Selection Permitted Signatures: Dispatcher [employer] EDMS Pennie Rocha Kathy, RN RN ko1 Treasure Boucher RN RN db Corral, Edwin, MD MD ec2 Corrections: (The following items were deleted from the chart) 12:38 12:38 Influenza Screen (A \T\ B)+BA.LAB.BRZ ordered. EDMS EDMS 12:38 12:38 SARS-COV-2 Antigen Rapid+I.LAB.BRZ ordered. EDMS EDMS 14:15 13:35 Dissection W/ Wo Con+CT.RAD.BRZ ordered. EDMS EDMS
[2024-08-21 17:02] VITALS: TEMP 98.1
[2024-08-21 17:06] VITALS: BP 159/98; O2SAT 95
== END 2024-08-21 16:49 | disposition home or self-care (01) ==
LOC: ER 12:11
DX: K80.80 Other cholelithiasis without obstruction (principal); N39.0 Urinary tract infection, site not specified; Z11.52 Encounter for screening for COVID-19
CPT/HCPCS: 36415; 71045; 71275; 74175; 76705; 80048; 80076; 81001; 81025; 83880; 84484; 85025; 85610; 87086; 87088; 87804; 87811; 93005; 99285; J1200; J1790; J2765; J3010; J3475; J7030; Q9967

== ENCOUNTER 2024-08-21 18:24 | Observation (INO) | payer SELFPAY ==
--- OUTSIDE RECORDS SUMMARY | 2024-08-21 18:28 | XMS REPORT | Continuity of Care Document ---
Author Name Unknown Address [address] [facility] [address] [place] [address] [facility] Address [address] [facility] [place] [address] Care Team Providers Care Fingerprint Clerk Name Role Phone None, None Primary Care Physician Unavailab Yen Mireles MD Attending Clinician Stacy Haney LCSW Attending Clinician Unavail able SHANA TINAJERO Attending Clinician ARLINE Shah Attending Clinician Unavailab zander NORWOOD Attending Clinician Unavailrob e Mg_mahamed Attending Clinician Unavailrob Bolden Attending Clinician Unavailable [...] Number Effective Date Expirati on Date Source [facility] [id number] 2016 00:00:00 Problems Condition Name Condition Details Condition Category Status Onset Date Resolution Date Last Treatment Date Treating Clinician Comments Source Myopia Myopia Problem Active 09-19 00:00: 00 [place] [facility] Ophthalmic examinatio n and evaluation Ophthalmic Examinatio n and Evaluation Problem Active 09-19 00:00: 00 [place] [facility] Noncomplia nce with treatment Noncomplia nce with Treatment Problem Active 08-17 00:00: 00 [place] [facility] Polycystic ovary Polycystic Ovary Problem Active 2019-07 00:00: 00 [place] [facility] Vitamin deficiency Vitamin Deficiency Problem Active 2019-07 00:00: 00 [place] [facility] Hypertensi ve disorder Hypertensi ve Disorder Problem Active 2018-07 00:00: 00 [place] [facility] Cardiomega ly Cardiomega ly Problem Active 2018-07 00:00: 00 [place] [facility] Allergies, Adverse Reactions, Alerts Allergy Name Allergy Type Status Severity Reaction(s) Onset Date Inactive Date Treating Clinician Comments Source Metoprol ol Propensi ty to adverse reaction s Active Other 11-27 00:00: 00 vomiting [facility] Morphine Propensi ty to adverse reaction s Active 11-27 00:00: 00 Pt reports lethal rnx but does not specify [facility] Latex Allergy to substanc e Active 10-22 00:00: 00 [place] [facility] Morphine Allergy to substanc e Active 18 00:00: 00 [facility] CYCLOBEN ZAPRINE HCL Allergy to substanc e Active 2010-07 [facility] 00:00[facility] Social History Social Habit Start Date Stop Date Quantity Comments Source Exposure to SARS-CoV-2 (event) 2022-12-08 00:00:00 2022-12-18 13:08:00 Not sure [facility] Sex Assigned At 1980 00:00:00 1980 00:00:00 [facility] Smoking Status Start Date Stop Date Source Former Smoker [facility] Tobacco smoking consumption unknown [facility] Medications Ordered Medication Name Filled Medication Name Start Date Stop Date Current Medication? Ordering Clinician Indication Dosage Frequency Signature (SIG) Comments Components Source losartan (Cozaar) 50 MG tablet 01-09 00:00: 00 01-09 04:59 :00 No [id number] 50mg Q.5D Take 1 tablet (50 mg total) by mouth in the morning and 1 tablet (50 mg total) in the evening. [facility] losartan (Cozaar) 25 MG tablet 24 00:00: 00 Yes 25mg Q.5D Take 25 mg by mouth in the morning and 25 mg in the evening. Stop taking this medication and contact prescriber if you maybe . [facility] amLODIPine (Norvasc) 10 MG tablet 11-19 00:00: 00 Yes 10mg QD Take 10 mg by mouth 1 (one) time each day. [facility] Aspirin Low Dose 81 MG EC tablet 11-19 00:00: 00 Yes 81mg QD Take 81 mg by mouth 1 (one) time each day. [facility] atorvastati n (Lipitor) 80 MG tablet 11-19 00:00: 00 Yes 80mg Take 80 mg by mouth every night. [facility] ergocalcife rol (vitamin D2) 1,250 mcg (50,000 unit) capsule TAKE 1 CAPSULE BY MOUTH EVERY WEEK ergocalcife rol (vitamin D2) 1,250 mcg (50,000 unit) capsule TAKE 1 CAPSULE BY MOUTH EVERY WEEK No ergocalcif davon (vitamin D2) 1,250 mcg (50,000 unit) capsule TAKE 1 CAPSULE BY MOUTH EVERY WEEK [facility] hydrocortis one 2.5 % topical cream with perineal applicator APPLY THIN LAYER EXTERNALLY TO THE AFFECTED AREA TWICE DAILY hydrocortis one 2.5 % topical cream with perineal applicator APPLY THIN LAYER EXTERNALLY TO THE AFFECTED AREA TWICE DAILY No hydrocorti sone 2.5 % topical cream with perineal applicator APPLY THIN LAYER EXTERNALLY TO THE AFFECTED AREA TWICE DAILY [facility] metoprolol tartrate 50 mg tablet TK ONE T PO BID metoprolol tartrate 50 mg tablet TK ONE T PO BID No metoprolol tartrate 50 mg tablet TK ONE T PO BID [facility] olmesartan 40 mg tablet TK 1 T PO QD olmesartan 40 mg tablet TK 1 T PO QD No olmesartan 40 mg tablet TK 1 T PO QD [facility] phenazopyri dine 200 mg tablet TAKE 1 TABLET BY MOUTH TWICE DAILY FOR 5 DAYS phenazopyri dine 200 mg tablet TAKE 1 TABLET BY MOUTH TWICE DAILY FOR 5 DAYS No phenazopyr idine 200 mg tablet TAKE 1 TABLET BY MOUTH TWICE DAILY FOR 5 DAYS [facility] spironolact one 50 mg tablet TAKE 1 TABLET BY MOUTH EVERY DAY spironolact one 50 mg tablet TAKE 1 TABLET BY MOUTH EVERY DAY No spironolac tone 50 mg tablet TAKE 1 TABLET BY MOUTH EVERY DAY [facility] sulfamethox azole 800 mg-trimetho prim 160 mg tablet TAKE 1 TABLET BY MOUTH EVERY 12 HOURS FOR 7 DAYS sulfamethox azole 800 mg-trimetho prim 160 mg tablet TAKE 1 TABLET BY MOUTH EVERY 12 HOURS FOR 7 DAYS No sulfametho xazole 800 mg-trimeth oprim 160 mg tablet TAKE 1 TABLET BY MOUTH EVERY 12 HOURS FOR 7 DAYS [facility] Vital Signs Vital Name Observation Time Observation Value Comments S ource Height 2020-09-19 00:00:00 66 [in_i] Gavin shaikh [facility] BMI (Body Mass Index) 2020-09-19 00:00:00 38.6 kg/m2 [facility] Body Weight 2020-09-19 00:00:00 239 [lb_av] [place] [facility] BP Diastolic 2020-08-17 00:00:00 110 mm[Hg] [place] [facility] Height 2020-08-17 00:00:00 66 [in_i] [place] [facility] BMI (Body Mass Index) 2020-08-17 00:00:00 38.6 kg/m2 [place] [facility] BP Systolic 2020-08-17 00:00:00 170 mm[Hg] Chinchilla tyler [facility] Body Weight 2020-08-17 00:00:00 3824 [oz_av] [place] [facility] BP Diastolic 2020-07-24 00:00:00 110 mm[Hg] [place] [facility] Height 2020-07-24 00:00:00 66 [in_i] [facility] [facility] BMI (Body Mass Index) 2020-07-24 00:00:00 38.6 kg/m2 [place] [facility] BP Systolic 2020-07-24 00:00:00 194 mm[Hg] Chinchilla tyler [facility] Body Weight 2020-07-24 00:00:00 239 [lb_av] [place] [facility] BP Diastolic 2020-06-27 00:00:00 114 mm[Hg] [place] [facility] Height 2020-06-27 00:00:00 66 [in_i] [facility] BMI (Body Mass Index) 2020-06-27 00:00:00 39.5 kg/m2 [place] [facility] BP Systolic 2020-06-27 00:00:00 186 mm[Hg] Chinchilla tyler [facility] Body Weight 2020-06-27 00:00:00 245 [lb_av] [place] [facility] BP Diastolic 2020-05-16 00:00:00 87 mm[Hg] [place] [facility] Height 2020-05-16 00:00:00 66 [in_i] Gavin orda [facility] BMI (Body Mass Index) 2020-05-16 00:00:00 40.2 kg/m2 [place] [facility] BP Systolic 2020-05-16 00:00:00 136 mm[Hg] Amor barahonaa [facility] Body Weight 2020-05-16 00:00:00 3984 [oz_av] Ma [facility] BP Diastolic 2019-09-10 00:00:00 115 mm[Hg] Munir guadarramarda [facility] Height 2019-09-10 00:00:00 66 [in_i] Gavin orda [facility] BMI (Body Mass Index) 2019-09-10 00:00:00 37.6 kg/m2 [place] [facility] BP Systolic 2019-09-10 00:00:00 170 mm[Hg] Amor barahonaa [facility] Body Weight 2019-09-10 00:00:00 233 [lb_av] Munir guadarramarda [facility] Procedures Procedure Date / Time Performed Performing Clinicia n Source US, abdomen 2020-08-17 00:00:00 [facility] ELECTROCARDIOGRAM, COMPLETE 2019-09-10 00:00:00 [place] [facility] Delivery Only [facility] Orthopedic Surgery [place] [facility] Encounters Start Date/Time End Date/Time Encounter Type Admission Type Attending Clinicians Care Facility Care Department Encounter ID Source 2023-02-05 09:20:06 Outpatient [facility] [id number] [facility] 2023-01-14 09:56:50 Outpatient [facility] [id number] [facility] 2022-12-13 11:50:00 Outpatient [facility] [id number] [facility] 2022-12-06 09:22:35 Outpatient [facility] [id number] [facility] 2022-11-27 15:07:36 Outpatient [facility] [id number] [facility] 2022-11-24 14:14:38 Outpatient [facility] [id number] [facility] 2022-11-19 12:47:23 Outpatient [facility] [id number] [facility] 2022-11-18 09:48:11 Outpatient [facility] [id number] [facility] 2023-11-17 15:30:00 2023-11-17 15:30:00 Outpatient [facility] [id number] [facility] 2023-05-07 14:30:00 2023-05-07 14:30:00 Outpatient [facility] [id number] [facility] 2023-02-26 14:30:00 2023-02-26 17:55:48 Telemedici ne Yen Mendieta [facility] [id number] [id number] [facility] 2023-02-12 13:00:00 2023-02-12 13:00:00 Outpatient [facility] [id number] [facility] 2022-12-20 11:30:00 2022-12-20 11:30:00 Outpatient [facility] [id number] [facility] 2022-12-18 13:00:00 2022-12-18 13:00:00 Telemedici ne YEN MENDIETA [facility] [id number] [id number] [facility] 2022-12-18 00:00:00 2022-12-18 00:00:00 Patient Outreach LyndonMalachiStacy LyndonMalachiStacy [facility] [id number] [id number] [facility] 2022-11-27 13:00:00 2022-11-27 13:00:00 Telemedici ne YEN MENDIETA [facility] [id number] [id number] [facility] 2022-11-21 00:00:00 2022-11-21 00:00:00 Patient Outreach Stacy Haney Latonya [facility] [id number] [id number] [facility] 2022-11-16 01:42:00 2022-11-19 14:34:00 Inpatient U SHANA TINAJERO [facility] [id number] [facility] 2022-11-15 17:44:00 2022-11-15 23:54:00 Emergency ER ARLINE HERNANDEZ [facility] [id number] [facility] 2022-11-15 17:44:00 2022-11-15 23:54:00 emergency [id number] 2022-10-30 00:00:00 2022-10-30 00:00:00 Outpatient JULIUS_FERMIN SCIKENYETTAA [id number] [facility] 2020-09-19 12:53:00 2020-09-19 12:53:00 Outpatient Obisesan_ad ekunbi [facility] [id number] [facility] 2020-09-19 00:00:00 2020-09-19 00:00:00 Elodia Agudelo MD: [address] [place] [address] , Ph. [facility] [id number] [facility] 2020-08-17 05:52:00 2020-08-17 05:52:00 Outpatient Obisesan_ad ekunbi [facility] [id number] [facility] 2020-08-17 00:00:00 2020-08-17 00:00:00 Mahamed Holliday, FACILITIES MAINTENANCE TECHNICIAN: [place] [address] , Ph. [facility] [id number] [facility] 2020-07-24 01:03:00 2020-07-24 01:03:00 Outpatient Obisesan_ad ekunbi [facility] [id number] [facility] 2020-07-24 00:00:00 2020-07-24 00:00:00 Sam Caicedo MD: [id number], [place] [address] , Ph. [facility] [id number] [facility] 2020-06-27 02:21:00 2020-06-27 02:21:00 Outpatient Obisesan_ad ekunbi [facility] [id number] [facility] 2020-06-27 00:00:00 2020-06-27 00:00:00 Jamila Huizar, FACILITIES MAINTENANCE TECHNICIAN: [address], [place] [address] , Ph. [facility] [place] [facility] GYN [id number] [facility] 2020-05-16 04:35:00 2020-05-16 04:35:00 Outpatient Obisesan_ad ekunbi [facility] [id number] [facility] 2020-05-16 00:00:00 2020-05-16 00:00:00 Mahamed Holliday, FACILITIES MAINTENANCE TECHNICIAN: [place] [address] , Ph. [facility] [id number] [facility] 2020-05-15 12:06:00 2020-05-15 12:06:00 Outpatient Obisesan_ad ekunbi [facility] [id number] [facility] 2020-05-04 04:08:00 2020-05-04 04:08:00 Outpatient Obisesan_ad ekunbi [facility] [id number] [facility] 2019-11-01 04:09:00 2019-11-01 04:09:00 Outpatient Young_J [facility] [id number] [facility] 2019-09-10 05:02:00 2019-09-10 05:02:00 Outpatient Obisesan_ad ekunbi [facility] [id number] [facility] 2019-09-10 00:00:00 2019-09-10 00:00:00 Mahamed Holliday, FACILITIES MAINTENANCE TECHNICIAN: [address] [place] [address] , Ph. [facility] [id number] [facility] 2019-05-17 16:45:00 2019-05-19 16:55:00 Inpatient ER DESTIN MARTÍNEZ [facility] [id number] [facility] 2013-05-28 08:17:00 2013-05-28 08:17:00 Outpatient EL CONRAD PHYSICIAN, . [facility] [id number] [facility] 2012-10-21 16:25:00 2012-10-22 10:16:00 Inpatient ER ERASTO DIAZ [facility] [id number] [facility] 2012-06-12 17:17:00 2012-06-12 21:19:00 Emergency ER KASHIF BLUE [facility] [id number] [facility] 2011-04-26 15:00:00 2011-05-01 12:40:00 Inpatient LAURA CORDERO [facility] [id number] [facility] 2011-04-24 01:52:00 2011-04-24 04:00:00 Emergency ER LAURA ZAVALA [facility] [id number] [facility] 2011-04-19 11:51:00 2011-04-20 13:50:00 Inpatient LAURA CORDERO [facility] [id number] [facility] 2008-04-17 04:50:00 2008-04-22 19:21:00 Inpatient ER FAITH HENSON [facility] [id number] [facility] Results Test Description Test Time Test Comments Results Result Co mments Source [facility] Differential panel - Blood 2020-06-28 [...] immature cells (test code = immature cells) input output clerk Neutrophils [#/volume] in Bl ood by Automated [...] Blood by Automated count (test code = 84787-4) 0 % not estab. Immature granulocytes [#/volume] in Blood by Automated count (test code = 16013-7) 0.0 x10e3/uL 0.0-0.1 Nucleated erythrocytes/100 leukocytes [Ratio] in Blood by Automated count (test code = 88526-0) input output clerk Morphology [Interpretation] in Blood Narrative (test code = 41154-0) input output clerk [place] [facility] 2000 panel - Serum or [id number] 00:00:00* Test Item Value Reference Range Interpretation [...] by Creatinine-based formula (CKD-EPI) (test code = 45346-3) 83 mL/min/1.73 >59 Glomerular filtration rate/1.73 sq M.predicted among blacks [Volume Rate/Area] in Serum, Plasma or Blood by Creatinine-based formula (CKD-EPI) (test code = 25575-2) 96 mL/min/1.73 >59 Urea nitrogen/Creatinine [Ma ss Ratio] in Serum or Plasma (test code = 3097-3) 22 9-23 Sodium [Moles/volume] in Ser um or Plasma (test code = 2951-2) 143 mmol/L 134-144 Potassium [Moles/volume] in Serum or Plasma (test code = 2823-3) 4.5 mmol/L 3.5-5.2 Chloride [Moles/volume] in Serum or Plasma (test code = 2075-0) 105 mmol/L 96-106 Carbon dioxide, total [Moles/volume] in Serum or Plasma (test code = 2027-9) 24 mmol/L 20-29 Calcium [Mass/volume] in Ser um or Plasma (test code = 17055-5) 9.4 mg/dL 8.7-10.2 Protein [Mass/volume] in Ser um or Plasma (test code = 2885-2) 7.0 g/dL 6.0-8.5 Albumin [Mass/volume] in Ser um or Plasma (test code = 1751-7) 4.5 g/dL 3.8-4.8 Globulin [Mass/volume] in Serum by calculation (test code = 58501-2) 2.5 g/dL 1.5-4.5 Albumin/Globulin [Mass Ratio ] [...] (test code = 1742-6) 18 IU/L 0-32 [facility] - Serum or Plasma 2020-06-28 [...] or Plasma by calculation (test code = 78481-8) 15 mg/dL 5-40 Cholesterol in LDL [Mass/vol ume] in Serum or Plasma by calculation (test code = 58648-6) 88 mg/dL 0-99 Laboratory comment [Text] in Report Narrative (test code = 96587-6) input output clerk [facility] Ab [Presence] in Serum by RPR 2020-06-28 00:00:00* Test Item Value Reference Range Interpretation Comme nts Reagin Ab [Presence] in Seru m by RPR (test code = 18056-1) non reactive non reactive [facility]+2 Ab+HIV1 p24 Ag [Presence] in Serum or Plasma by [id number] 00:00:00* Test Item Value Reference Range Interpretation Comme nts HIV 1+2 Ab+HIV1 p24 Ag [Presence] in Serum or Plasma by Immunoassay (test code = 76283-6) non reactive non reactive [facility] Texas[facility]atitis B virus surface Ag [Presence] in Serum or Plasma by [id number] 00:00:00* Test Item Value Reference Range Interpretation Comme nts Hepatitis B virus surface Ag [Presence] in Serum or Plasma by Immunoassay (test code = 5196-1) negative negative [facility] assessment panel, [id number] 00:00:00* Test Item Value Reference Range Interpretation Comme nts interpretation (test code = interpretation) note pdf (test code = pdf) . 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 note: (test code = note:) comment Cytology report of Cervical or vaginal smear or scraping Cyto stain.thin prep (test code = 85630-3) comment Human papilloma virus 16+18+31+33+35+39+45+51+52+56+58+59+ 66+68 DNA [Presence] in Cervix by Probe with signal amplification (test code = 06353-4) negative negative Chlamydia trachomatis rRNA [Presence] in Cervix by RAH with probe detection (test code = 62979-3) negative negative Neisseria gonorrhoeae rRNA [Presence] in Cervix by RAH with probe detection (test code = 60358-0) negative negative Trichomonas vaginalis rRNA [Presence] in Unspecified specimen by RAH with probe detection (test code = 78330-7) negative negative [facility] Texas[facility] [id number] 15:07:00* Test Item Value Reference Range Interpretation Comme nts Rate & Rhythm (test code = R ate & Rhythm) 55 NV Interval (test code = NV Interval) 218 QRS Duration (test code = QRS Duration) 106 QT Interval (test code = QT Interval) 461 [facility]
--- NOTE | 2024-08-21 18:39 | EDPHYS ---
Physician Documentation [facility] Name: Mary Blanco Age: 43 yrs Sex: Female : 1980 Arrival Date: 08/21/2024 Time: 18:24 Bed 19 Private MD: ED Physician Servando Atkins HPI: 08/21 18:35 This 43 yrs old Female presents to ER via Unassigned with complaints of Pain, ec2 Nausea/Vomiting. 18:35 Patient arrives today for evaluation of abdominal pain along with nausea and vomiting. ec2 Patient was seen here by me several hours ago, diagnosed with symptomatic cholelithiasis and instructed to follow-up with general surgery. Patient reports persistent pain, worsening of pain and unable to manage at home.. Historical: - Allergies: 18:49 Morphine; aa5 - PMHx: 18:49 Hypertensive disorder; stroke; aa5 - Immunization history:: Adult Immunizations unknown. - Infectious Disease History:: Denies. - Social history:: Smoking status: Patient denies any tobacco usage or history of. ROS: 18:36 Constitutional: as per hpi ec2 Exam: 18:36 Constitutional: GEN: NAD Head: atraumatic Eyes: EOMI Ears: External ears are ec2 normal. CV: regular rate LUNGS: no respiratory distress ABD: non-distended, tender in epigastrium, not guarding or rigid SKIN: no evidence of rashes MSK: no evidence of trauma Vital Signs: 18:28 BP 202 / 102; Pulse 60; Resp 18 S; Temp 98.1(O); Pulse Ox 97% on R/A; Weight 117.93 kg aa5 (R); Height 5 ft. 6 in. (R); 19:45 BP 161 / 65; Pulse 50; Resp 16; Pulse Ox 97% on 2 lpm NC; jb4 20:00 BP 142 / 75; Pulse 52; Resp 16; Pulse Ox 100% on 2 lpm NC; jb4 18:28 Body Mass Index 41.96 (117.93 kg, 167.64 cm) aa5 MDM: 18:33 Medical Screening Exam initiated ec2 18:36 Data reviewed: vital signs, nurses notes. ED course: Patient arrives today for ec2 evaluation of upper abdominal pain after being recently seen with ultrasonography and CT imaging that was pertinent for cholelithiasis. Will obtain repeat labs, give the patient medications for pain and admit for general surgery evaluation and possible removal.. 18:39 ED course: I discussed case with general surgery, , recommended antibiotics, ec2 n.p.o. at midnight and will see in the a.m. Discussed case with hospitalist, pending admission.. 08/21 18:33 Order name: CBC with Diff ec2 08/21 18:33 Order name: CMP ec2 08/21 18:33 Order name: Lipase ec2 08/21 18:57 Order name: Lactate w/ 2H reflex if indic. EDMS 08/21 18:57 Order name: Magnesium EDMS 08/21 18:57 Order name: Phosphorus EDMS 08/21 18:57 Order name: Urinalysis w/ reflexes EDMS 08/21 18:57 Order name: CBC with Automated Diff EDMS 08/21 18:57 Order name: CBC with Automated Diff EDMS 08/21 18:57 Order name: Comprehensive Metabolic Panel EDMS 08/21 18:57 Order name: Comprehensive Metabolic Panel EDMS 08/21 18:57 Order name: Lipid Profile EDMS 08/21 18:57 Order name: Lipid Profile EDMS 08/21 18:33 Order name: IV; Complete Time: 19:29 ec2 08/21 18:34 Order name: NPO; Complete Time: 19:09 ec2 08/21 19:39 Order name: Misc. Order: recollect green top; Complete Time: 20:30 vk Administered Medications: 19:43 Drug: Rocephin IV 1 grams IV at calculated rate once; Given slow IV push per pharmacy jb4 instructions Route: IV; Rate: calculated rate; Site: right hand; 19:44 Follow up: IV Status: Completed infusion; IV Intake: 10ml vc1 19:44 Drug: fentaNYL (PF) IVP 50 mcg IVP once Route: IVP; Site: right hand; jb4 20:31 Follow up: Response: No adverse reaction; Marked relief of symptoms; Pain is decreased vc1 19:44 Drug: Ondansetron IVP 4 mg IVP once; over 2 minutes Route: IVP; Site: right hand; jb4 20:31 Follow up: Response: No adverse reaction; Marked relief of symptoms vc1 19:44 Drug: metroNIDAZOLE IVPB 500 mg 100 ml IVPB at 200 ml/hr once over 30 mins Volume: 100 jb4 ml; Route: IVPB; Rate: 200 ml/hr; Infused Over: 30 mins; Site: right hand; 20:15 Follow up: IV Status: Completed infusion; IV Intake: 500ml vc1 Disposition Summary: 08/21/24 18:39 Hospitalization Ordered Notes: Hospitalization Status: Inpatient Admission ec2 Provider: Prince Jono ec2 Location: Telemetry/MedSurg (Inpatient) ec2 Condition: Stable ec2 Problem: an ongoing problem ec2 Symptoms: are unchanged ec2 Bed/Room Type: Standard ec2 Room Assignment: 211(08/21/24 19:08) sp Diagnosis - Symptomatic Cholelithiasis ec2 Forms: - Medication Reconciliation Form ec2 - SBAR form ec2 - Leadership Thank You Letter ec2 Signatures: Dispatcher [employer] EDMS Pennie Rocha Audri RN RN aa5 Arley Lemos RN RN jb4 Servando Atkins MD MD ec2 Gilma Lee Vanessa RN vc1 Corrections: (The following items were deleted from the chart) 18:34 18:34 CBC+H.LAB.BRZ ordered. EDMS EDMS 18:34 18:34 COMPREHENSIVE METABOLIC PANEL+C.LAB.BRZ ordered. EDMS EDMS 18:34 18:34 LIPASE+C.LAB.BRZ ordered. EDMS EDMS 19:08 18:39 ec2 sp
[2024-08-21] MEDS ORDERED: ACETAMINOPHEN 500 MG TAB PO PRN (18:53)
[2024-08-21] MEDS ORDERED: SODIUM CHLORIDE 0.9% 10ML INJ IV PRN (18:56)
[2024-08-21] MEDS: NA CHLORIDE 0.9% 1,000 ML IV SCH (19:00)
[2024-08-21] MEDS ORDERED: FENTANYL CITR 100 MCG/2 ML ONE (19:31)
[2024-08-21] MEDS ORDERED: ONDANSETRON 4 MG/2 ML VIAL ONE (19:31)
[2024-08-21] MEDS ORDERED: CEFTRIAXONE 1000 MG/VIAL ONE (19:31)
[2024-08-21] MEDS ORDERED: METRONIDAZOLE 500mg IVPB 500 MG/100 ML BAG IV ONE (19:32)
[2024-08-21 19:38] LABS: Absolute Basophils 0.1 K/uL (0-0.5); Absolute Eosinophils 0.1 K/uL (0-0.5); Absolute Monocytes 0.4 K/uL (0.1-1.3); Absolute Neutrophil 7.6 K/uL (1.8-8.0); Basophils % 0.8 % (0-1.3); Eosinophils % 0.6 % (0-4.4); Hematocrit 37.4 % (36.0-45.0); Hemoglobin 12.5 g/dL (12.0-15.0); Lymphocytes % 10.6 % (15.3-44.8); MCH 27.5 pg (27.0-35.0); MCHC 33.3 g/dL (32.0-36.0); MCV 82.8 fL (80-100); Monocytes % 4.3 % (3.3-12.3); Neutrophils % 83.7 % (41.7-73.7); Nucleated Red Blood Cells % 0.1 % (0-0); Platelets 240 thou/uL (152-406); RBC Red Blood Cell Count 4.52 M/uL (3.86-4.86)
--- NOTE | 2024-08-21 19:38 | P.HP ---
Certification for Inpatient Patient admitted to: Observation With expected LOS: <2 Midnights Practitioner: I am a practitioner with admitting privileges, knowledge of patient current condition, hospital course, and medical plan of care. Services: Services provided to patient in accordance with Admission requirements found in Title 42 Section 412.3 of the Code of Federal Regulations Patient History Date of Service: 08/21/24 Reason for admission: abdominal pain History of Present Illness: Patient is a 43-year-old female with a PMH of morbid obesity, HTN and CVA. She presents to the ER with persistent abdominal pain. She is describing an epigastric abdominal pain radiating bilaterally. She has been found to have gallstones. She will be admitted for cholecystectomy. Allergies morphine Allergy (Unverified 12/14/13 20:41) Unknown Home Medications: Aspirin Chewable [Aspirin Chewable*] 81 mg PO DAILY 08/21/24 Metoprolol Tartrate [Lopressor*] 50 mg PO BID 08/21/24 Physical Examination - Physical Exam General: Acute distress, Obese (morbidly obese) HEENT: Atraumatic, Normocephalic Respiratory: Clear to auscultation bilaterally, Normal air movement Cardiovascular: No edema, Normal pulses, Regular rate/rhythm, Normal S1 S2 Gastrointestinal: Soft and benign, Tenderness Neurological: Normal speech Assessment and Plan - Problems (Diagnosis) (1) Cholelithiasis Current Visit: Yes Status: Acute (2) Morbid obesity Current Visit: Yes Status: Acute (3) CVA (cerebral vascular accident) Current Visit: Yes Status: Acute (4) HTN (hypertension) Current Visit: Yes Status: Acute - Plan Assessment Patient is a 43 year old female being admitted for cholethiasis that failed outpatient management. Cholelithiasis UTI (as per UA from 08/21/2024) Morbid obesity Hypertensive urgency CVA PLAN: Will admit under observation IV fluid and Zosyn PPI and anti-emetics MMP regimen General surgery consult PRN IV hydralazine Resumed on PO metoprolol Resume rest of home medications once reconciled - Advance Directives Does patient have a Living Will: No Does patient have a Durable POA for Healthcare: No
[2024-08-21 20:40] LABS: Albumin 3.1 g/dL (3.4-5.0); Albumin/Globulin Ratio 0.8 (1.1-1.8); Anion Gap 6.1 mEq/L (5.0-15.0); Bilirubin Total 0.5 mg/dL (0.2-1.0); Potassium 4.1 mEq/L (3.5-5.1); Protein, Total 7.1 g/dL (6.4-8.2)
--- NOTE | 2024-08-21 21:45 | ER ---
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 18:28 Coronavirus screen: nausea, vomiting. Ebola Screen: Patient denies travel to an [facility] Ebola-affected area in the 21 days before illness onset. Initial Sepsis Screen: Does the patient meet any 2 criteria? No. Patient's initial sepsis screen is negative. Does the patient have a suspected source of infection? No. Patient's initial sepsis screen is negative. Risk Assessment: Do you want to hurt yourself or someone else? Patient reports no desire to harm self or others. Onset of symptoms was August 2024. 18:28 Acuity: LAKESHA 3 aa5 18:28 Method Of Arrival: Wheelchair aa5 Triage Assessment: 19:00 General: Appears in no apparent distress. uncomfortable, obese, Behavior is vc1 cooperative, appropriate for age. Pain: Complains of pain in abdomen. GI: Reports nausea, vomiting. Historical: - Allergies: 18:49 Morphine; aa5 - PMHx: 18:49 Hypertensive disorder; stroke; aa5 - Immunization history:: Adult Immunizations unknown. - Infectious Disease History:: Denies. - Social history:: Smoking status: Patient denies any tobacco usage or history of. Screenin:32 [facility] ED Fall Risk Assessment (Adult) History of falling in the last 3 months, vc1 including since admission No falls in past 3 months (0 pts) Confusion or Disorientation No (0 pts) Intoxicated or Sedated No (0 pts) Impaired Gait No (0 pts) Mobility Assist Device Used No (0 pt) Altered Elimination No (0 pt) Score/Fall Risk Level 0 - 2 = Low Risk Oriented to surroundings, Maintained a safe environment, Educated pt \T\ family on fall prevention, incl call for assistance when getting out of bed. Abuse screen: Denies threats or abuse. Nutritional screening: No deficits noted. Tuberculosis screening: No symptoms or risk factors identified. Assessment: 19:00 General: Appears in no apparent distress. uncomfortable, Behavior is calm, cooperative, jb4 appropriate for age. Pain: Complains of pain in right upper quadrant Pain does not radiate. Pain currently is 8 out of 10 on a pain scale. Neuro: Level of Consciousness is awake, alert, obeys commands, Oriented to person, place, time, situation. Cardiovascular: Patient's skin is warm and dry. Respiratory: Airway is patent Respiratory effort is even, Respiratory pattern is regular, symmetrical. GI: Abdomen is round non-distended, Reports upper abdominal pain, nausea. Derm: Skin is intact, Skin is pink, warm \T\ dry. 20:00 Reassessment: Patient appears in no apparent distress at this time. Patient and/or jb4 family updated on plan of care and expected duration. Pain level reassessed. Patient is alert, oriented x 3, equal unlabored respirations, skin warm/dry/pink. 20:35 Reassessment: No changes from previously documented assessment. Patient and/or family vc1 updated on plan of care and expected duration. Pain level reassessed. Patient is alert/active/playful, equal unlabored respirations, skin warm/dry/pink. GI: Abdomen is round non-distended. 21:00 Reassessment: Patient appears in no apparent distress at this time. Patient and/or jb4 family updated on plan of care and expected duration. Pain level reassessed. Patient is alert, oriented x 3, equal unlabored respirations, skin warm/dry/pink. Vital Signs: 18:28 BP 202 / 102; Pulse 60; Resp 18 S; Temp 98.1(O); Pulse Ox 97% on R/A; Weight 117.93 kg aa5 (R); Height 5 ft. 6 in. (R); 19:45 BP 161 / 65; Pulse 50; Resp 16; Pulse Ox 97% on 2 lpm NC; jb4 20:00 BP 142 / 75; Pulse 52; Resp 16; Pulse Ox 100% on 2 lpm NC; jb4 18:28 Body Mass Index 41.96 (117.93 kg, 167.64 cm) aa5 ED Course: 18:28 Patient arrived in ED. jj6 18:28 Arm band placed on Patient placed in an exam room, on a stretcher. aa5 18:32 Atkins, Servando, MD is Attending Physician. ec2 18:39 Prince De La Cruz MD is Hospitalizing Provider. ec2 18:49 Triage completed. aa5 19:00 Patient has correct armband on for positive identification. Bed in low position. Pulse vc1 ox on. NIBP on. 19:29 CBC with Diff Sent. jb4 19:29 CMP Sent. jb4 19:29 Lipase Sent. jb4 20:35 No provider procedures requiring assistance completed. Patient admitted, IV remains in vc1 place. 21:43 Provided Education on: admit orders. vc1 Administered Medications: 19:43 Drug: Rocephin IV 1 grams IV at calculated rate once; Given slow IV push per pharmacy jb4 instructions Route: IV; Rate: calculated rate; Site: right hand; 19:44 Follow up: IV Status: Completed infusion; IV Intake: 10ml vc1 19:44 Drug: fentaNYL (PF) IVP 50 mcg IVP once Route: IVP; Site: right hand; jb4 20:31 Follow up: Response: No adverse reaction; Marked relief of symptoms; Pain is decreased vc1 19:44 Drug: Ondansetron IVP 4 mg IVP once; over 2 minutes Route: IVP; Site: right hand; jb4 20:31 Follow up: Response: No adverse reaction; Marked relief of symptoms vc1 19:44 Drug: metroNIDAZOLE IVPB 500 mg 100 ml IVPB at 200 ml/hr once over 30 mins Volume: 100 jb4 ml; Route: IVPB; Rate: 200 ml/hr; Infused Over: 30 mins; Site: right hand; 20:15 Follow up: IV Status: Completed infusion; IV Intake: 500ml vc1 Medication: 20:34 VIS not applicable for this client. vc1 Intake: 19:44 IV: 10ml; Total: 10ml. vc1 20:15 IV: 500ml; Total: 510ml. vc1 Outcome: 18:39 Decision to Hospitalize by Provider. ec2 21:43 Admitted to Med/surg accompanied by nurse, via wheelchair, room 211, with chart, vc1 21:43 Condition: stable 21:43 Instructed on the need for admit, 21:44 Patient left the ED. vc1 Signatures: Kimberly Drew RN RN aa5 Arley Lemos RN RN jb4 Shoshana Marin6 Cintia Sierra RN RN vc1 Servando Atkins MD MD ec2 Corrections: (The following items were deleted from the chart) 18:50 18:28 BP 202 / 102; Pulse 60bpm; Resp 18bpm; Spontaneous; Pulse Ox 97% RA; Temp 98.1F aa5 Oral; aa5
[2024-08-21 21:47] VITALS: BMI 43.4
[2024-08-21] MEDS: METOPROLOL TAR 50 MG TAB PO SCH (23:02)
[2024-08-21] MEDS: PANTOPRAZOLE 40 MG INJ IVP SCH (23:02)
[2024-08-21 23:14] LABS: Magnesium 2.4 mg/dL (1.6-2.4); Phosphorus 3.9 mg/dL (2.5-4.9)
[2024-08-21] MEDS: PIPER TAZO 3.375 GM in NA CHLORIDE 0.9% 100 ML IV ONE (23:19)
[2024-08-22] MEDS ORDERED: PIPER TAZO 3.375 GM in NA CHLORIDE 0.9% 100 ML IV SCH (01:00)
[2024-08-22 05:22] LABS: Absolute Eosinophils 0.1 K/uL (0-0.5); Absolute Lymphocytes (CBC) 1.7 K/uL (0.7-4.9); Absolute Monocytes 0.7 K/uL (0.1-1.3); Absolute Neutrophil 5.3 K/uL (1.8-8.0); Basophils % 0.6 % (0-1.3); Hematocrit 36.1 % (36.0-45.0); Hemoglobin 11.8 g/dL (12.0-15.0); MCH 27.6 pg (27.0-35.0); MCHC 32.8 g/dL (32.0-36.0); MCV 84.3 fL (80-100); Monocytes % 9.1 % (3.3-12.3); Neutrophils % 67.3 % (41.7-73.7); Nucleated Red Blood Cells % 0.1 % (0-0); Platelets 223 thou/uL (152-406); RBC Red Blood Cell Count 4.28 M/uL (3.86-4.86); Red Cell Distribution Width 15.3 % (12.1-15.2)
[2024-08-22 05:47] LABS: Albumin 2.9 g/dL (3.4-5.0); Albumin/Globulin Ratio 0.8 (1.1-1.8); Anion Gap 6.9 mEq/L (5.0-15.0); Bilirubin Total 0.5 mg/dL (0.2-1.0); Globulin 3.5 g/dL (2.3-3.5); Potassium 3.9 mEq/L (3.5-5.1); Protein, Total 6.4 g/dL (6.4-8.2)
[2024-08-22] MEDS: PIPER TAZO 3.375 GM in NA CHLORIDE 0.9% 100 ML IV SCH (06:50)
[2024-08-22] MEDS: SUCCINYLCHOLINE 20 MG/ML (10 ML) IV ONE (08:22)
[2024-08-22] MEDS: ROCURONIUM 50 MG/5 ML VIAL IV ONE ×2 (08:23→09:57)
[2024-08-22] MEDS ORDERED: propofoL 200 MG/20 ML VIAL IV ONE (08:26)
[2024-08-22] MEDS ORDERED: FENTANYL CITR 250 MCG/5 ML ONE (08:27)
[2024-08-22] MEDS ORDERED: MIDAZOLAM HCL 2 MG/2 ML INJ ONE (08:27)
[2024-08-22] MEDS ORDERED: FENTANYL CITR 100 MCG/2 ML ONE (08:27)
[2024-08-22 08:29] LABS: Sqamous Epithelial None Seen /HPF (None Seen); Urine Bacteria None Seen /HPF (<20); Urine Culture Reflex Order NOT NEEDED; Urine Micro Reflex YN NO BILL MICROSCOPIC; Urine RBC >50 /HPF (None Seen); Urine WBC <5 /HPF (<5); Urine Yeast (Budding) Moderate /HPF (None Seen)
[2024-08-22] MEDS ORDERED: LIDOCAINE 2% MPF 5 ML VIAL ONE (08:29)
[2024-08-22] MEDS: Ringers Lactate 1,000 ML IV ONE ×2 (08:50→10:51)
[2024-08-22] MEDS: ASPIRIN 81 MG CHEWABLE TABLET PO SCH (09:00)
[2024-08-22] MEDS: SUGAMMADEX SODIUM 200 MG/2 ML VIAL IV ONE ×2 (09:01→10:21)
[2024-08-22] MEDS: EPHEDRINE SULF 50 MG/ML VIAL ONE (09:06)
--- NOTE | 2024-08-22 09:10 | P.CNS ---
Date of Consult: 08/22/24 Reason for consult: Abdominal pain History of present illness: Patient is a 43-year-old female presents with 2-day history of upper abdominal pain radiating to the back associated with nausea and vomiting. Patient had a workup in the ER on her initial admission yesterday. Workup revealed cholelithiasis without evidence of cholecystitis. Patient was discharged home with follow-up instructions. However, her symptoms worsened and she came back to the emergency room. She denies having these symptoms in the past. Patient denies sore throat, runny nose, cough, headaches, dizziness, chest pain, fever or chills. Review of systems: Otherwise unremarkable Past medical history: Hypertension and questionable history of stroke 2 years ago for which the etiology is unclear Past surgical history: 2 C-sections and carpal tunnel surgeries Allergies: Morphine Social history: Patient denies smoking or drinking alcohol Family history: Hypertension diabetes Vital signs: Stable, afebrile Physical exam: Awake, alert and oriented x 3 Head and neck exam: No neck masses, no JVD, throat clear, neck supple, no evidence of icterus Chest: Clear Heart: S1-S2 Abdomen: Soft, nondistended, positive bowel sounds, tenderness in the epigastric and right upper quadrant tenderness with minimal rebound but no rigidity or guarding Extremity: Neurovascular intact Neuro: Nonfocal Diagnostic data: Laboratory data and diagnostic data reviewed Assessment: Likely chronic cholecystitis and cholelithiasis with acute exacerbation. Plan/recommendation: Admit, n.p.o., IV fluids, IV antibiotics and to the OR for laparoscopic cholecystectomy possible open. Patient understands risk, benefits and alternatives and agrees to procedure. CC:
[2024-08-22] MEDS ORDERED: ONDANSETRON 4 MG/2 ML VIAL ONE (09:27)
[2024-08-22] MEDS ORDERED: METOCLOPRAMIDE 10 MG/2mL INJ ONE (09:28)
[2024-08-22] MEDS ORDERED: KETOROLAC 30 MG/ML INJ ONE (09:28)
[2024-08-22] MEDS: BUPIVACAINE 0.5% PF 10 ML VIAL ONE (09:32)
[2024-08-22] MEDS ORDERED: GLYCOPYRROLATE 0.2 MG/ML SYR ONE ×2 (09:42→09:45)
[2024-08-22] MEDS ORDERED: ATROPINE SULFATE 1 MG/ML INJ ONE (09:45)
[2024-08-22] MEDS ORDERED: Mastisol Adhesive Liq ONE (10:24)
--- NOTE | 2024-08-22 10:24 | P.OP ---
Date of Service: 08/22/24 Preop diagnosis: Acute and chronic cholecystitis and cholelithiasis Postop diagnosis: Same Procedure performed: Laparoscopic cholecystectomy Surgeon: Shravan Connor MD Produce Production Team Member: Tameka JACINTO Estimated blood loss: Minimal Specimen: Gallbladder Findings: As above Anesthesia: General Complications: None Fluids and blood products: Nonapplicable Disposition: Recovery room Operative note: Patient brought to the OR and placed in supine position. General anesthesia began. Patient prepped and draped in the usual sterile f ashion. 1 cm supraumbilical midline incision made. Subcutaneous tissue divided and bleeding controlled with cautery. Fascia identified and divided. #1 Vicryl stay suture placed. Peritoneal cavity entered with sharp and blunt dissection. 12 mm trocar placed into the peritoneal cavity under direct vision. Pneumoperitoneum established. Three 5 mm trocar placed under direct vision. 1 trocar placed in the epigastric region just to the right of midline. 2 trocars placed in the right subcostal region. Laparoscopy revealed a distended inflamed gallbladder. Gallbladder was aspirated of bile. Fundus was identified and retracted superiorly. Infundibulum was identified and retracted inferolaterally. Cystic duct and cystic artery were clearly identified with blunt dissection. Clips placed and both structures divided. Cautery used to remove the gallbladder from the liver bed. Bleeding on the liver bed controlled with cautery. Gallbladder retrieved through the umbilicus via Endo Catch bag. Right upper quadrant irrigated and effluent clear. No evidence of bleeding or bile leakage appreciated. All trocars removed under direct vision. Stay sutures tied together to reapproximate the fascial defect. Subcutaneous wounds irrigated and bleeding controlled cautery. 3-0 chromic used to approximate subcutaneous tissue and close skin. Sterile dressing applied and patient awakened. Patient taken to recovery room in good general condition. CC:
[2024-08-22] MEDS: MIDAZOLAM HCL 2 MG/2 ML INJ ONE (10:50)
[2024-08-22] MEDS: HYDROMORPHONE HCL 1 MG/ML INJ IV PRN (11:10)
--- NOTE | 2024-08-22 12:01 | P.PN ---
Subjective Date of Service: 08/22/24 Chief Complaint: S/p cholecystectomy Patient has just had the operation unresponsive post op daughter at the bedside no complaints Review of Systems is unable to be obtained Physical Examination - Vital Signs Temperature: 97.0 F Blood Pressure: 147/74 Pulse: 64 Respirations: 20 Pulse Ox (%): 93 - Physical Exam General: Unresponsive Respiratory: Clear to auscultation bilaterally, Diminished Cardiovascular: No edema, Regular rate/rhythm Assessment And Plan - Current Problems (Diagnosis) (1) Cholelithiasis Current Visit: Yes Status: Acute Plan: Patient is s/p cholecystectomy doing well hemodynamically stable labs chemistries all reviewed vital signs all stable daughter at the bedside patient is little hypoxic continue to monitor Qualifiers: Cholecystitis presence: without cholecystitis Biliary obstruction: without biliary obstruction
[2024-08-22] MEDS: HYDROCODONE/APAP 7.5/325 MG TAB PO PRN (15:52)
[2024-08-22] MEDS: HYDRALAZINE HCL 20 MG/ML VIAL IV PRN (16:52)
[2024-08-23 00:12] VITALS: O2SAT 94
[2024-08-23] MEDS: HYDROMORPHONE HCL 1 MG/ML INJ IV PRN (01:32)
[2024-08-23] MEDS: ONDANSETRON 4 MG/2 ML VIAL IV PRN (01:38)
[2024-08-23 04:34] LABS: Absolute Eosinophils 0.1 K/uL (0-0.5); Absolute Lymphocytes (CBC) 1.2 K/uL (0.7-4.9); Absolute Monocytes 0.7 K/uL (0.1-1.3); Absolute Neutrophil 7.8 K/uL (1.8-8.0); Basophils % 0.4 % (0-1.3); Eosinophils % 0.9 % (0-4.4); Hematocrit 32.9 % (36.0-45.0); Hemoglobin 11.1 g/dL (12.0-15.0); MCHC 33.6 g/dL (32.0-36.0); MCV 83.2 fL (80-100); MPV 9.8 fL (7.6-11.3); Monocytes % 7.5 % (3.3-12.3); Neutrophils % 79.2 % (41.7-73.7); Platelets 183 thou/uL (152-406); RBC Red Blood Cell Count 3.96 M/uL (3.86-4.86); Red Cell Distribution Width 15.2 % (12.1-15.2)
[2024-08-23 04:47] LABS: Anion Gap 6.9 mEq/L (5.0-15.0); Magnesium 2.2 mg/dL (1.6-2.4); Phosphorus 2.7 mg/dL (2.5-4.9); Potassium 3.9 mEq/L (3.5-5.1)
[2024-08-23 06:18] VITALS: TEMP 97.9
[2024-08-23 08:39] VITALS: BP 197/92
--- NOTE | 2024-08-23 08:48 | P.DS ---
Admission Date: 08/21/24 Discharge Date: 08/23/24 Reason for Admission: S/p cholecystectomy Consultations: General surgery - Dr. Connor Brief History of Present Illness: Patient is a 43-year-old female with a PMH of morbid obesity, HTN and CVA. She presents to the ER with persistent abdominal pain. She is describing an epigastric abdominal pain radiating bilaterally. She has been found to have gallstones. She will be admitted for cholecystectomy. Hospital Course: Problem List: Acute cholecystitis and cholelithiasis, now s/p lap vero (08/22) Hypertensive urgency, resolved Hx of prior CVA Morbid obesity Physician discharge instructions: Patient presented with persistent epigastric abdominal pain secondary to acute cholecystitis and cholelithiasis. She was evaluated by Dr. Connor, and underwent lap vero on 08/22. Patient ambulating and tolerating liquid diet post-operatively. She was monitored overnight post-operatively, feeling better, abdominal pain improving, afebrile without leukocytosis and was deemed stable for discharge. Patient received ~1 day of empiric zosyn while hospitalized and is to complete 1 more week of Augmentin on discharge. Continue soft bland food diet for the next 3-5 days. Can ease back into regular diet over the next week. Avoid fatty/greasy foods. Follow up with Dr. Connor in office in 1 week for further management. medications: Augmentin x1 week In regards to pain medication, she reports already having picked up recent tylenol #3 prescription right before admission from prior ER visit. Continue tylenol #3 already in possession as needed for pain. Follow up: PCP 3-[address] Connor in office in 1 week Please call to schedule / confirm appointments Patient hospitalized from from 08/21/24-08/23/24. Okay to return to work once cleared by Dr. Connor at follow up appointment. Instructions per Dr. Connor Remove outer dressing in 2 days and shower Keep Steri-Strips on at all times Resume home meds and diet Activity as tolerated, no heavy lifting Antibiotics and pain medicine per the hospitalist team Follow-up my office 1 week, call for appointment Incentive spirometry as instructed Physical Exam: GEN: Alert, oriented, NAD CV: Regular rate and rhythm, no edema Pulm: Nonlabored respirations on room air, clear bilaterally ABD: soft, mild abdominal soreness, surgical dressing in place Neuro: Normal speech, normal affect Vital Signs/Physical Exam: Temp Pulse Resp BP Pulse Ox 97.9 F 61 18 197/92 H 94 08/23/24 08:00 08/23/24 08:00 08/23/24 08:00 08/23/24 08:00 08/23/24 08:00 Laboratory Data at Discharge: WBC 9.80 thou/uL (4.3-10.9) 08/23/24 04:05 Hgb 11.1 g/dL (12.0-15.0) L 08/23/24 04:05 Hct 32.9 % (36.0-45.0) L 08/23/24 04:05 Plt Count 183 thou/uL (152-406) 08/23/24 04:05 Sodium 138 mEq/L (136-145) 08/23/24 04:05 Potassium 3.9 mEq/L (3.5-5.1) 08/23/24 04:05 BUN 11 mg/dL (7-18) 08/23/24 04:05 Creatinine 0.92 mg/dL (0.55-1.02) 08/23/24 04:05 Glucose 95 mg/dL (74-106) 08/23/24 04:05 Phosphorus 2.7 mg/dL (2.5-4.9) 08/23/24 04:05 Magnesium 2.2 mg/dL (1.6-2.4) 08/23/24 04:05 Total Bilirubin 0.5 mg/dL (0.2-1.0) 08/22/24 05:01 AST 20 U/L (15-37) 08/22/24 05:01 ALT 30 U/L (13-56) 08/22/24 05:01 Alkaline Phosphatase 52 U/L (45-117) 08/22/24 05:01 Triglycerides 105 mg/dL (<150) 08/22/24 05:01 Cholesterol 140 mg/dL (<200) 08/22/24 05:01 HDL Cholesterol 44 mg/dL (40-60) 08/22/24 05:01 Cholesterol/HDL Ratio 3.18 08/22/24 05:01 Lipase 52 U/L (13-75) 08/21/24 20:10 Home Medications: Aspirin Chewable [Aspirin Chewable*] 81 mg PO DAILY 08/21/24 Metoprolol Tartrate [Lopressor*] 50 mg PO BID 08/21/24 Amox/Clavulanate [Augmentin 875-125 Tab] 1 tab PO BID 7 Days #14 tab 08/23/24 New Medications: Amox/Clavulanate [Augmentin 875-125 Tab] 1 tab PO BID 7 Days #14 tab Physician Discharge Instructions: Physician discharge instructions: Patient presented with persistent epigastric abdominal pain secondary to acute cholecystitis and cholelithiasis. She was evaluated by Dr. Connor, and underwent lap vero on 08/22. Patient ambulating and tolerating liquid diet post-operatively. She was monitored overnight post-operatively, feeling better, abdominal pain improving, afebrile without leukocytosis and was deemed stable for discharge. Patient received ~1 day of empiric zosyn while hospitalized and is to complete 1 more week of Augmentin on discharge. Continue soft bland food diet for the next 3-5 days. Can ease back into regular diet over the next week. Avoid fatty/greasy foods. Follow up with Dr. Connor in office in 1 week for further management. medications: Augmentin x1 week In regards to pain medication, she reports already having picked up recent tylenol #3 prescription right before admission from prior ER visit Continue tylenol #3 already in possession as needed for pain. Follow up: PCP 3-[address] Connor in office in 1 week Please call to schedule / confirm appointments Patient hospitalized from from 08/21/24-08/23/24. Okay to return to work once cleared by Dr. Connor at follow up appointment. Instructions per Dr. Connor Remove outer dressing in 2 days and shower Keep Steri-Strips on at all times Resume home meds and diet Activity as tolerated, no heavy lifting Antibiotics and pain medicine per the hospitalist team Follow-up my office 1 week, call for appointment Incentive spirometry as instructed Diet: Low sodium Activity: No lifting more than 10 lbs Followup: Shravan Connor MD [ACTIVE - CAN ADMIT] - 1 Week Carlos Soriano MD [Primary Care Provider] - Time spent managing pt's care (in minutes): 45
[2024-08-23] MEDS: POTASSIUM 25 MEQ EFFERV TAB PO ONE (09:00)
--- NOTE | 2024-08-23 13:19 | PN ---
Date of Progress Note: 08/23/2024 Subjective: The patient is awake, alert, complaining of mild incisional pain. Tolerating diet. Objective: Vitals: Stable, afebrile. Abdomen: Benign. Dressing clean, dry, and intact. Laboratory Data: Reviewed. Assessment: Status post laparoscopic cholecystectomy. Recommendations: The patient cleared from surgery standpoint to be discharged after breakfast. Inst ructions given. Follow up in my office one week. Antibiotics and pain medicine per the hospitalist team. /MODL Voice ID: [id number] Report ID: [id number]
== END 2024-08-23 09:42 | disposition home or self-care (01) ==
LOC: ER 18:24 → ERHOLD 18:53 → 2ND 21:00
PROVIDERS: ADMIT Internal Medicine; ATTEND Hospitalist
PROC: 0FT44ZZ Resection of Gallbladder, Percutaneous Endoscopic Approach (ICD-10-PCS; principal; 2024-08-22 09:00)
DX: K80.12 Calculus of gallbladder with acute and chronic cholecystitis without obstruction (principal); G89.18 Other acute postprocedural pain; R09.02 Hypoxemia; R10.13 Epigastric pain; E66.01 Morbid (severe) obesity due to excess calories; I10 Essential (primary) hypertension; Z86.73 Personal history of transient ischemic attack (TIA), and cerebral infarction without residual deficits; Z88.5 Allergy status to narcotic agent; Z68.41 Body mass index [BMI] 40.0-44.9, adult
CPT/HCPCS: 36415; 80048; 80053; 80061; 81015; 82947; 83605; 83690; 83735; 84100; 85025; 88304; 94010; 96365; 96375; 99285; G0378; J0360; J0461; J0696; J1171; J2003; J2250; J2405; J2470; J2543; J2704; J2765; J3010; J7030; J7120